=== PATIENT | male | born 1975 | race Caucasian/White ===

== ENCOUNTER 2024-02-26 08:59 | Inpatient (IN) | payer BC, SELFPAY ==
[2024-02-26] VITALS (17 sets, daily range): BP systolic 119–169; BP diastolic 94–131; PULSE 78–117; RESP 13–93; TEMP 36.4–37.1; O2SAT 95–100; BMI 30.1
--- NOTE | 2024-02-26 09:19 | XR_ITS ---
Examination: AP chest single view Technique one AP portable semiupright chest single view Exam date and time: February 26, 2024 1036 hrs. Indications: Shortness of breath coughing diaphoresis leg swelling beginning 2 weeks ago. Findings: Early CHF Mild to moderate enlargement left ventricle Prominent vascular congestion with early septal edema Impression: Early CHF
--- NOTE | 2024-02-26 09:19 | EKG_ITS ---
[facility] Test Date: 2024-02-26 Pat Name: JOSE BAIRES Department: Room: - Gender: Male Adjunct In[employer]: : 1975 Requested By: Luke Hernandez Order Number: [id number] Reading MD: Luke Hernandez Measurements Intervals [place] Rate: 106 P: 59 [place]: 163 QRS: -33 QRSD: 97 T: 60 QT: 413 QTc: 550 Interpretive Statements SINUS TACHYCARDIA WITH OCCASIONAL SUPRAVENTRICULAR PREMATURE COMPLEXES POSSIBLE LEFT ATRIAL ENLARGEMENT [-0.1mV P WAVE IN V1/V2] MARKED LEFT AXIS DEVIATION [QRS AXIS < -30] NONSPECIFIC T-WAVE ABNORMALITY No previous ECG available for comparison /store/S0/[id number].pdf
--- NOTE | 2024-02-26 09:20 | PD.EDRME ---
Rapid Medical Screening Exam RME Arrival date/time: 02/26/24 08:59 Chief Complaint: Flu Like Symptoms Time Seen by Provider: 02/26/24 09:07 Vital signs: Vital Signs Temperature 98.8 F 02/26/24 09:08 Pulse Rate 111 H 02/26/24 09:08 Respiratory Rate 18 02/26/24 09:08 Blood Pressure 156/121 H 02/26/24 09:08 Pulse Oximetry (%) 99 02/26/24 09:08 Oxygen Delivery Method Room Air 02/26/24 09:08 RME Narrative: Shortness of breath, ALCOCER, BLE swelling x 2 weeks. Denies prior cardiac hx.
--- NOTE | 2024-02-26 09:43 | XR_ITS ---
Examination: Venous duplex lower extremity sonogram, bilateral. Date and time of exam: February 26, 2024 0957 hrs. Indications: Bilateral leg edema beginning 2 weeks ago Technique: Multiple sonographic images of the deep venous system have been obtained. B-mode/2-D grayscale imaging of vascular structures and Doppler spectral analysis (waveforms) and color performed Both legs are examined. Findings: Positive for acute nonocclusive deep vein thrombus involving the bilateral posterior tibial veins Remaining deep venous system both lower extremities unremarkable Impression: Positive for acute nonocclusive deep vein thrombus involving bilateral posterior tibial veins
--- NOTE | 2024-02-26 09:43 | XR_ITS ---
Examination: CTA chest with intravenous contrast 2-D reconstructions 3-D reconstructions, vascular Date and time of exam: February 26, 2024 11:41 AM Indications: Chest pain hypertension shortness of breath beginning one week ago CTDI: vol (mGy) 37.3 DLP: (mGycm) 449 Technique: Multiple axial sections of the thorax have been obtained. 3 mm slice thickness, from below the hemidiaphragms to above the apices of the lungs. Mediastinal and lung density settings have been obtained. 2-D sagittal and coronal reconstructions. 3-D angiographic renderings, 3-D volume renderings, 3D post processing, vascular maximum intensity projections obtained. Contrast administered is 100 cc Isovue-370. Low dose protocols were performed. One or more of the following dose reduction techniques were used; automated exposure control, adjustment of the mA and/or KV according to patient size, use of iterative reconstruction technique. Findings: No thoracic aortic aneurysmal dilatation or dissection No pulmonary artery emboli No paratracheal tracheobronchial or bronchopulmonary adenopathy Mild to moderate enlargement cardiac contour with prominent vascular congestion and early septal edema in the lung coy Small to moderate right pleural effusion and small left pleural effusion No lobar pneumonia No visualized liver or splenic lesion Gallbladder is only partly visualized No pancreatic mass Kidneys partially visualized no hydronephrosis Impression: Negative for pulmonary artery emboli Mild CHF
--- NOTE | 2024-02-26 09:45 | PD.EDSOB ---
ED SOB =RME/HPI General Chief Complaint: Flu Like Symptoms Stated Complaint: DIFF BREATHING/COUGH/SWEATS/LEG SWELLING/DENTAL Time Seen by Provider: 02/26/24 09:07 Arrival date/time: 02/26/24 08:59 RME / HPI RME / HPI Narrative: Shortness of breath, ALCOCER, BLE swelling x 2 weeks. Denies prior cardiac hx. This section includes all my notes and documentations, including HPI, PE, and ED course.? Luis Barrios MD HPI: 48 year old male here with a couple week history of dyspnea. With orthopnea and leg swellings. No CP. No fever or chills. No other complaints. ROS: All negative except as documented in HPI. Physical Exam: General:? Alert and oriented.? In mild respiratory distress with hypoxia and high BP. Eyes:? Conjunctivae and lids clear.? EOMI.? PERRL. ENT:? No nasal congestion.? Neck:? Supple.? No carotid bruit.? No JVD.?? Heart:? RRR.? Lungs:? Mild respiratory distress.? Moderately decreased air movement with rales and wheezing. Legs:? Moderate pitting edema of lower legs. Skin:? Warm and dry.?? Neuro:? Alert and oriented X 3.? Solumedrol 125 mg IV and DuoNeb given before diagnostic tests, no improvement noted. I reviewed all diagnostic test results. My interpretation of the EKG is sinus rhythm with nonspecific ST-T changes. My interpretation of the chest x-ray is increased vascular congestion. My review of the chest CT report is no PE but with CHF. My review of the leg US reports is bilateral DVT. Blood tests and urine tests remarkable for normal D-Dimer, negative Troponin, and BNP 556. At this point, diagnoses include?CHF, Respiratory Failure, DVT, and Hypertensive Urgency. Treatment here included?Lasix, Morphine, NTG, Lovenox, Metoprolol, and Clonidine. No significant improvement noted subjectively and objectively. I discussed the case with our hospitalist.? About the presentation and exam and diagnostics and treatments here.? And need of further care in the hospital.? Will accept the patient. Luis Barrios MD Related Data Previous Rx's ?Medication ?Instructions ?Recorded apixaban 5 mg (74 tabs) tablets in 5 mg PO BID #74 tabs 03/01/24 a dose pack (Eliquis DVT-PE Treat 30D Start) atorvastatin 40 mg tablet 40 mg PO HS 30 days #30 tabs 03/01/24 furosemide 40 mg tablet 40 mg PO QDAY 30 days #30 tabs 03/01/24 metformin 500 mg tablet,extended 500 mg PO QDAY #30 tabs 03/01/24 release 24 hr metoprolol succinate 25 mg 25 mg PO QDAY #30 tabs 03/01/24 tablet,extended release 24 hr miscellaneous medical supply #1 ea 03/01/24 (Blood Pressure Cuff) sacubitril 24 mg-valsartan 26 mg 1 tab PO BID #30 tabs 03/01/24 tablet (Entresto) Allergies Allergy/AdvReac Type Severity Reaction Status Date / Time dapagliflozin Allergy Intermediate Flushing & Verified 02/28/24 15:11 fever & hives Course Quality Measures none Orders Category Date Time Status Bedside COVID-19 Antigen Test NOW Care 02/26/24 11:11 Active COVID-19 Screening Questionnaire NOW Care 02/26/24 12:[address] Screening NOW Care 02/26/24 09:43 Active Decision to Admit X1 Care 02/26/24 12:31 Completed EKG (ED ONLY) *Do not use* NOW Care 02/26/24 09:19 Completed Saline [Insert IV] NOW Care 02/26/24 09:[address] angio chest Stat Exams 02/26/24 09:43 Completed CXR [XR chest 1V] Stat Exams 02/26/24 09:19 Completed EKG (ED Only) Stat Exams 02/26/24 09:19 Draft US venous doppler LE BI Stat Exams 02/26/24 09:43 Completed ABG [Arterial Blood Gas] Stat Lab 02/26/24 12:50 Completed BNP [B-Type Natriuretic Peptide] Stat Lab 02/26/24 09:33 Completed CBC Stat Lab 02/26/24 09:33 Completed CMP [Comprehensive Metabolic Panel] Stat Lab 02/26/24 09:33 Completed D-Dimer Stat Lab 02/26/24 09:33 Completed Magnesium Stat Lab 02/26/24 09:33 Completed Troponin I Stat Lab 02/26/24 09:33 Completed UA, C/S IF [Urinalysis, C/S if Indicated] Stat Lab 02/26/24 11:20 Completed Albuterol/Ipratr Rt Alma [Duoneb Rt Alma] Med 02/26/24 09:42 Discontinued 3 ml INH X1 ONE Enoxaparin [Lovenox] Med 02/26/24 13:00 Discontinued 100 mg SC X1 ONE Furosemide Inj [Lasix Inj] Med 02/26/24 10:37 Discontinued 20 mg IVP X1 ONE MethylPREDNISolone.* [SoluMEDROL Inj] Med 02/26/24 09:42 Discontinued 125 mg IVP X1 ONE Metoprolol Tartrate [Lopressor] Med 02/26/24 10:36 Discontinued 50 mg PO X1 ONE Morphine Inj Med 02/26/24 10:37 Discontinued 2 mg IVP X1 ONE Nitroglycerin Oint 2% [Nitro-paste Oint 2%] Med 02/26/24 10:37 Discontinued 1 inch TOP X1 ONE cloNIDine HCL [Catapres] Med 02/26/24 10:36 Discontinued 0.2 mg PO X1 ONE Vital Signs Vital signs: Vital Signs Temperature 98.8 F 02/26/24 09:08 Pulse Rate 111 H 02/26/24 09:08 Respiratory Rate 18 02/26/24 09:08 Blood Pressure 156/121 H 02/26/24 09:08 Pulse Oximetry (%) 99 02/26/24 09:08 Oxygen Delivery Method Room Air 02/26/24 09:08 Shortness of Breath / Dyspnea Patient data External records reviewed:: [facility] previous records Clinical information provided by:: patient Social determinants that could affect healthcare access:: none Patient has the following chronic illnesses:: HTN DM COPD How is presenting disease/condition affected by chronic disease/condition?: exacerbated by Evaluation data The following diagnostics were reviewed and interpreted by me:: lab results, radiology exam(s) and EKG tracing(s) (My interpretation of the EKG is: Sinus rhythm (106 bpm) with nonspecific ST-T changes. Luis Barrios MD) Lab and/or radiology exams considered but not ordered:: none Interpretation Summary: CHF, Respiratory Failure, DVT, and Hypertensive Urgency. Medications / Prescriptions Medications or Prescriptions considered but not ordered:: none Medication administrations:: Medication Administration History Acetaminophen (Acetaminophen 325 Mg Tablet) 650 mg PO Q6H PRN PRN Reason: Fever >101.5 Stop: 03/27/24 13:30 Acetaminophen (Acetaminophen 325 Mg Tablet) 650 mg PO Q6H PRN PRN Reason: PAIN SCALE 1-3 (mild Stop: 03/27/24 13:30 Hydrocodone Bitart/Acetaminophen (Hydrocodone/Apap 5/325 Tablet) 1 tab PO Q4HR PRN PRN Reason: Pain Scale 4-10 Stop: 03/02/24 13:35 Last Admin: 02/27/24 13:16 Dose: 1 tab Documented By: Admin: 02/26/24 22:53 Dose: 1 tab Documented By: AM Apixaban (Apixaban 2.5 Mg Tablet) 10 mg PO BID REPLACED BY [facility] Stop: 03/07/24 21:01 Atorvastatin Calcium (Atorvastatin Calcium 20 Mg Tablet) 40 mg PO HS REPLACED BY [facility] Stop: 03/28/24 20:59 Last Admin: 02/29/24 21:44 Dose: 40 mg Documented By: Admin: 02/28/24 20:22 Dose: 40 mg Documented By: Admin: 02/27/24 20:56 Dose: 40 mg Documented By: AM Carvedilol (Carvedilol 3.125 Mg Tablet) 3.125 mg PO BIDWM REPLACED BY [facility] Stop: 03/28/24 17:29 Last Admin: 03/01/24 08:12 Dose: 3.125 mg Documented By: Admin: 02/29/24 17:07 Dose: 3.125 mg Documented By: Admin: 02/29/24 07:59 Dose: 3.125 mg Documented By: Admin: 02/28/24 17:26 Dose: 3.125 mg Documented By: Admin: 02/28/24 08:10 Dose: 3.125 mg Documented By: Admin: 02/27/24 16:41 Dose: 3.125 mg Documented By: NQ Dextrose (Dextrose 50%-Water Inj 50 Ml Syringe) 25 ml IV Q15MIN PRN PRN Reason: BG 50-70 responsive npo pt Stop: 03/27/24 13:35 Dextrose (Dextrose 50%-Water Inj 50 Ml Syringe) 50 ml IV Q15MIN PRN PRN Reason: BG <50 OR BG <70 & pt unresponsive Stop: 03/27/24 13:35 Diphenhydramine HCl (Diphenhydramine 25 Mg Capsule) 25 mg PO Q6HR PRN PRN Reason: Itching or hives Stop: 03/29/24 12:55 Furosemide (Furosemide 40 Mg Tablet) 40 mg PO QDAY ESTHER Stop: 03/31/24 08:59 Last Admin: 03/01/24 08:13 Dose: 40 mg Documented By: TM Glucagon (Glucagon Inj 1 Mg Vial) 1 mg IM Q15MIN PRN PRN Reason: BG <70, and no IV access Insulin Human Lispro (Insulin Lispro (Admelog) 1 Unit/0.01 Ml Unit) 0 unit SC AC REPLACED BY [facility]; Protocol Stop: 03/27/24 16:59 Last Admin: 03/01/24 11:43 Dose: 1 unit Documented By: DAVID Co-signed By: DE Admin: 03/01/24 07:38 Dose: 1 unit Documented By: DAVID Co-signed By: DARVIN Admin: 02/29/24 17:07 Dose: 1 unit Documented By: DAVID Co-signed By: GERALD Admin: 02/29/24 11:31 Dose: 1 unit Documented By: DAVID Co-signed By: DARVIN Admin: 02/29/24 08:00 Dose: 1 unit Documented By: TM Co-signed By: JEAN Admin: 02/28/24 16:46 Dose: Not Given Documented By: JED Non-Admin Reason: Per Protocol Admin: 02/28/24 12:33 Dose: Not Given Documented By: JRJesus Non-Admin Reason: Per Protocol Admin: 02/28/24 07:41 Dose: 1 unit Documented By: JED Co-signed By: DIANA Admin: 02/27/24 16:37 Dose: 1 unit Documented By: NQ Co-signed By: KEVIN Admin: 02/27/24 11:31 Dose: 2 unit Documented By: NQ Co-signed By: DANYEL Admin: 02/27/24 08:00 Dose: 1 unit Documented By: NQ Co-signed By: DANYEL Admin: 02/26/24 17:01 Dose: 2 unit Documented By: MARY(2) Co-signed By: PHILIP Losartan Potassium (Losartan Potassium 25 Mg Tablet) 25 mg PO QDAY ESTHER Stop: 03/27/24 13:44 Last Admin: 03/01/24 08:13 Dose: 25 mg Documented By: Admin: 02/29/24 07:59 Dose: 25 mg Documented By: TM Pantoprazole Sodium (Pantoprazole 40 Mg Tablet) 40 mg PO QDAY ESTHER Stop: 03/28/24 11:59 Last Admin: 03/01/24 08:13 Dose: 40 mg Documented By: Admin: 02/29/24 07:59 Dose: 40 mg Documented By: Admin: 02/28/24 08:11 Dose: 40 mg Documented By: R Admin: 02/27/24 13:14 Dose: 40 mg Documented By: NQ Sennosides (Senna Tablet) 2 tab PO BID PRN; Protocol PRN Reason: CONSTIPATION Stop: 03/27/24 13:30 Discontinued Medications Albuterol/Ipratropium (Albuterol/Ipratropium (Duoneb) Rt Alma 3 Ml Nebu) 3 ml INH X1 ONE Stop: 02/26/24 09:43 Last Admin: 02/26/24 10:23 Dose: 3 ml Documented By: CHLOE Clonidine (Clonidine Hcl 0.1 Mg Tablet) 0.2 mg PO X1 ONE Stop: 02/26/24 10:37 Last Admin: 02/26/24 10:43 Dose: 0.2 mg Documented By: AM(2) Dapagliflozin (Dapagliflozin Propanediol 5 Mg Tablet) 5 mg PO QAM REPLACED BY [facility] Stop: 03/29/24 10:59 Last Admin: 02/28/24 12:34 Dose: 5 mg Documented By: JED Diphenhydramine HCl (Diphenhydramine 25 Mg Capsule) 25 mg PO X1 ONE Stop: 02/28/24 12:57 Last Admin: 02/28/24 13:13 Dose: 25 mg Documented By: JED Enoxaparin Sodium (Enoxaparin Sod Inj 100 Mg/Ml Syringe) 100 mg SC X1 ONE Stop: 02/26/24 13:01 Last Admin: 02/26/24 13:26 Dose: 100 mg Documented By: AM(2) Folic Acid (Folic Acid 1 Mg Tablet) 1 mg PO BID ESTHER Stop: 03/02/24 20:59 Last Admin: 03/01/24 08:12 Dose: 1 mg Documented By: Admin: 02/29/24 21:44 Dose: 1 mg Documented By: Admin: 02/29/24 07:59 Dose: 1 mg Documented By: Admin: 02/28/24 20:23 Dose: 1 mg Documented By: Admin: 02/28/24 08:11 Dose: 1 mg Documented By: Admin: 02/27/24 20:56 Dose: 1 mg Documented By: Admin: 02/27/24 08:07 Dose: 1 mg Documented By: Admin: 02/26/24 21:34 Dose: 1 mg Documented By: AM Furosemide (Furosemide Inj 10 Mg/Ml 4ml Vial) 20 mg IVP X1 ONE Stop: 02/26/24 10:38 Last Admin: 02/26/24 10:54 Dose: 20 mg Documented By: MARY(2) Furosemide (Furosemide Inj 10 Mg/Ml 4ml Vial) 40 mg IVP BIDD REPLACED BY [facility] Stop: 03/28/24 08:59 Last Admin: 02/27/24 08:06 Dose: 40 mg Documented By: NQ Furosemide (Furosemide Inj 10 Mg/Ml 4ml Vial) 20 mg IVP X1 ONE Stop: 02/26/24 14:03 Last Admin: 02/26/24 15:33 Dose: 20 mg Documented By: TC Furosemide (Furosemide Inj 10 Mg/Ml 4ml Vial) 40 mg IVP X1 ONE Stop: 02/26/24 21:01 Last Admin: 02/26/24 21:33 Dose: 40 mg Documented By: MARY Furosemide (Furosemide Inj 10 Mg/Ml Vial 2 Ml) 20 mg IVP X1 ONE Stop: 02/27/24 17:24 Last Admin: 02/27/24 17:29 Dose: 20 mg Documented By: MUNA Furosemide (Furosemide Inj 10 Mg/Ml 4ml Vial) 40 mg IVP QDAY REPLACED BY [facility] Stop: 03/29/24 08:59 Last Admin: 02/29/24 08:00 Dose: 40 mg Documented By: Admin: 02/28/24 08:11 Dose: 40 mg Documented By: JED Heparin Sodium (Porcine) (Heparin Sod Inj 5000 Unit/Ml Vial) 5,900 unit 60 unit/kg (5900 unit) IV X1 ONE; Protocol Stop: 02/26/24 13:37 Last Admin: 02/26/24 15:38 Dose: 5,900 unit Documented By: JAZIEL Co-signed By: MARY(2) Heparin Sodium (Porcine) (Heparin Sod Inj 5000 Unit/Ml Vial) 2,000 unit IV PRN ONE Stop: 02/26/24 22:58 Last Admin: 02/26/24 23:10 Dose: 2,000 unit Documented By: MARY Co-signed By: Heparin Sodium (Porcine) (Heparin Sod Inj 5000 Unit/Ml Vial) 2,000 unit IVP X1 ONE; Protocol Stop: 02/27/24 12:49 Last Admin: 02/27/24 13:02 Dose: 2,000 unit Documented By: NQ Co-signed By: KEVIN Heparin Sodium (Porcine) (Heparin Sod Inj 5000 Unit/Ml Vial) 1,750 unit IVP X1 ONE Stop: 02/27/24 15:18 Last Admin: 02/27/24 15:27 Dose: 1,750 unit Documented By: NQ Co-signed By: KEVIN Heparin Sodium/Dextrose (Heparin In D5w Ivpb) 25,000 unit in 250 mls @ 10 mls/hr IV .Q24H ESTHER; Protocol Stop: 03/11/24 15:29 Last Titration: 02/27/24 13:12 Dose: 14.2 units/kg/hr, 13.929 mls/hr Documented By: NQ Co-signed By: DANYEL Admin: 02/27/24 13:10 Dose: 12.2 units/kg/hr, 11.967 mls/hr Documented By: NQ Co-signed By: DANYEL Titration: 02/27/24 13:09 Dose: Infused Documented By: NQ Co-signed By: DANYEL Titration: 02/26/24 23:11 Dose: 12.2 units/kg/hr, 11.967 mls/hr Documented By: MARY Co-signed By: Titration: 02/26/24 19:49 Dose: 10.19 units/kg/hr, 10 mls/hr Documented By: CB Co-signed By: AM(2) Admin: 02/26/24 15:38 Dose: 12 units/kg/hr, 11.771 mls/hr Documented By: TC Co-signed By: AM(2) Heparin Sodium/Dextrose (Heparin In D5w Ivpb) 25,000 unit in 250 mls @ 16.835 mls/hr IV .[id number] REPLACED BY [facility]; Protocol Stop: 03/12/24 14:44 Last Admin: 03/01/24 04:54 Dose: 18 units/kg/hr, 16.835 mls/hr Documented By: JOSH Co-signed By: VONDA Titration: 03/01/24 02:22 Dose: Infused Documented By: JOSH Co-signed By: DA Admin: 02/29/24 11:30 Dose: 18 units/kg/hr, 16.835 mls/hr Documented By: TM Co-signed By: DARVIN Titration: 02/29/24 11:30 Dose: Infused Documented By: TM Co-signed By: DARVIN Admin: 02/28/24 21:00 Dose: 18 units/kg/hr, 16.835 mls/hr Documented By: AM Co-signed By: AM(3) Titration: 02/28/24 20:00 Dose: Infused Documented By: AM Co-signed By: AM(3) Titration: 02/28/24 07:03 Dose: 18 units/kg/hr, 16.835 mls/hr Documented By: R Co-signed By: DIANA Admin: 02/28/24 05:09 Dose: 18 units/kg/hr, 16.835 mls/hr Documented By: MARY Co-signed By: VONDA Titration: 02/28/24 05:09 Dose: Infused Documented By: AM Co-signed By: DA Titration: 02/27/24 22:11 Dose: 18 units/kg/hr, 16.835 mls/hr Documented By: AM Co-signed By: AD Titration: 02/27/24 19:00 Dose: 18 units/kg/hr, 16.835 mls/hr Documented By: AM Co-signed By: AD Admin: 02/27/24 15:31 Dose: 18 units/kg/hr, 16.835 mls/hr Documented By: NQ Co-signed By: KEVIN Lorazepam (Lorazepam 0.5 Mg Tablet) 0.5 mg PO Q4HR PRN PRN Reason: CIWA Score 2-6 Stop: 03/02/24 15:58 Lorazepam (Lorazepam 0.5 Mg Tablet) 1 mg PO Q4HR PRN PRN Reason: CIWA SCORE 7-11 Stop: 03/02/24 15:58 Lorazepam (Lorazepam 0.5 Mg Tablet) 2 mg PO Q4HR PRN PRN Reason: CIWA SCORE 12-15 Stop: 03/02/24 15:58 Losartan Potassium (Losartan Potassium 25 Mg Tablet) 25 mg PO QDAY ESTHER Stop: 03/27/24 13:44 Last Admin: 02/28/24 08:11 Dose: 25 mg Documented By: Admin: 02/27/24 08:07 Dose: 25 mg Documented By: Admin: 02/26/24 15:33 Dose: 25 mg Documented By: TC Methylprednisolone Sodium Succinate (Methylprednisolone Sod Succ 62.5 Mg/Ml 2ml Vial) 125 mg IVP X1 ONE Stop: 02/26/24 09:43 Last Admin: 02/26/24 10:44 Dose: 125 mg Documented By: AM(2) Metoprolol Tartrate (Metoprolol Tartrate 25 Mg Tablet) 50 mg PO X1 ONE Stop: 02/26/24 10:37 Last Admin: 02/26/24 10:44 Dose: 50 mg Documented By: AM(2) Morphine Sulfate (Morphine Sulf Inj 10 Mg/Ml Vial) 2 mg IVP X1 ONE Stop: 02/26/24 10:38 Last Admin: 02/26/24 10:55 Dose: 2 mg Documented By: AM(2) Nicotine (Nicotine Patch 7 Mg/24 Hr Patch.Td24) 7 mg TOP QDAY ESTHER Stop: 03/27/24 15:59 Last Admin: 03/01/24 08:13 Dose: Not Given Documented By: TM Non-Admin Reason: Patient Refused Admin: 02/29/24 08:01 Dose: Not Given Documented By: TM Non-Admin Reason: Patient Refused Admin: 02/28/24 08:12 Dose: Not Given Documented By: JRJesus Non-Admin Reason: Patient Refused Admin: 02/27/24 08:15 Dose: Not Given Documented By: NQ Non-Admin Reason: Patient Refused Admin: 02/26/24 16:35 Dose: Not Given Documented By: AM(2) Non-Admin Reason: Patient Refused Nitroglycerin (Nitroglycerin Oint 2% 1 Inch Packet) 1 inch TOP X1 ONE Stop: 02/26/24 10:38 Last Admin: 02/26/24 10:55 Dose: 1 inch Documented By: AM(2) Potassium Chloride (Potassium Chloride 20 Meq Tabcr) 20 meq PO X1 ONE Stop: 02/27/24 07:51 Last Admin: 02/27/24 08:06 Dose: 20 meq Documented By: NQ Potassium Chloride (Potassium Chloride 20 Meq Tabcr) 40 meq PO X1 ONE Stop: 02/27/24 07:51 Last Admin: 02/27/24 08:07 Dose: 40 meq Documented By: NQ Potassium Chloride (Potassium Chloride 20 Meq Tabcr) 40 meq PO X1 ONE Stop: 02/28/24 08:00 Last Admin: 02/28/24 08:29 Dose: 40 meq Documented By: JED Potassium Chloride (Potassium Chloride 20 Meq Tabcr) 40 meq PO X1 ONE Stop: 03/01/24 08:34 Last Admin: 03/01/24 09:37 Dose: 40 meq Documented By: TM Thiamine HCl (Thiamine 100 Mg Tablet) 100 mg PO BID ESTHER Stop: 03/02/24 20:59 Last Admin: 03/01/24 08:12 Dose: 100 mg Documented By: Admin: 02/29/24 21:44 Dose: 100 mg Documented By: Admin: 02/29/24 07:59 Dose: 100 mg Documented By: Admin: 02/28/24 20:23 Dose: 100 mg Documented By: Admin: 02/28/24 08:11 Dose: 100 mg Documented By: Admin: 02/27/24 20:56 Dose: 100 mg Documented By: Admin: 02/27/24 08:07 Dose: 100 mg Documented By: Admin: 02/26/24 21:34 Dose: 100 mg Documented By: AM Treatment here included?Lasix, Morphine, NTG, Lovenox, Metoprolol, and Clonidine from [place]. Consultations Consultation(s) initiated? (list below): No Diagnosis Shortness of Breath Differential Diagnosis: acute exacerbation of chronic obstructive airways disease, congestive heart failure, community acquired pneumonia, asthma with exacerbation, pulmonary embolism and other (UT and DVT) Most likely diagnosis given after review of the tests above:: CHF, Respiratory Failure, DVT, and Hypertensive Urgency. Admission Indicated Admission indicated?: indicated Explain why admission is indicated or not indicated:: No significant improvement with?Lasix, Morphine, NTG, Lovenox, Metoprolol, and Clonidine. Admission Request Was there a request for admission?: Yes Admission Attestation Admission request attestation: Discussed case with Hospitalist service regarding admission. Discussed patients ED course, exam findings, labs, and radiology results. The Hospitalist [agrees,declines] to accept the patient for admission. Disposition Plan Disposition Plan: Admit Discharge Plan Plan Patient Disposition: Admit Acute Care w/in Hospital Patient condition on transfer: Stable Problem List Clinical Impression: Acute respiratory failure with hypoxia, New onset of congestive heart failure, DVT of lower extremity, bilateral, Hypertensive urgency
[2024-02-26 09:59] LABS: Basophils # (Auto) 0.1 Thou/mm3 (0.0-0.2); Basophils % (Auto) 0 % (0-2.5); Eosinophils # (Auto) 0.1 Thou/mm3 (0.0-0.5); Eosinophils % (Auto) 1 % (0-10); Hematocrit 47.4 % (41.0-53.0); Immature Granulocytes % (Auto) 1 % (0-0); Immature Granulocytes Auto 0.06 Thou/mm3 (0.00-0.00); Lymphocytes # (Auto) 1.5 Thou/mm3 (1.0-4.8); Lymphocytes % (Auto) 13 % (10-50); Mean Corpuscular HGB Conc 33.8 g/dl (31.0-37.0); Mean Corpuscular Hemoglobin 30.5 pg (25.0-35.0); Mean Corpuscular Volume 90 fL (80-100); Monocytes % (Auto) 8 % (0-12); Neutrophils # (Auto) 9.6 Thou/mm3 (1.8-7.7); Neutrophils % (Auto) 78 % (37-80); Nucleated Red Blood Cell % 0 /100 WBC (0); Platelet Count 236 Thou/mm3 (140-440); RDW Standard Deviation 42.2 fL (35.1-43.9); Red Blood Count 5.25 Miln/mm3 (4.50-5.90); White Blood Count 12.2 Thou/mm3 (3.8-10.6)
[2024-02-26 10:19] LABS: B-Type Natriuretic Peptide 556 pg/mL (0-100)
[2024-02-26 10:23] LABS: Alanine Aminotransferase 120 U/L (10-49); Albumin, Serum 4.2 gm/dL (3.5-5.0); Albumin/Globulin Ratio 1.6 (1.2-2.2); Alkaline Phosphatase 114 U/L (46-116); Anion Gap 6 (7-16); Aspartate Amino Transferase 55 U/L (0-34); BUN/Creatinine Ratio 22 Ratio (12-20); Bilirubin,Total 0.8 mg/dL (0.3-1.2); Blood Urea Nitrogen 24 mg/dL (9-23); Calcium 9.1 mg/dL (8.3-10.6); Calcium (Corrected) 9.1 mg/dL (8.5-10.1); Carbon Dioxide 27.3 mMol/L (20.0-31.0); Chloride 104 mMol/L (98-107); Creatinine (Component) 1.1 mg/dL (0.6-1.3); D-Dimer < 250 ng/mL (<600); Estimated Creatinine Clearance 100.2 mL/min (>60); Globulin 2.6 gm/dL (2.3-3.5); Glucose 216 mg/dL (74-106); Magnesium 2.2 mg/dL (1.6-2.6); Osmolality,Calculated 284 (275-295); Potassium 4.8 mMol/L (3.4-5.1); Sodium 137 mMol/L (136-145); Total Protein 6.8 gm/dL (5.7-8.2); Troponin I 0.026 ng/mL (0.0-0.045); eGFR > 60 See Note
[2024-02-26] MEDS: ALBUTEROL/IPRATROPIUM (Duoneb) RT SOL 3 ML NEBU INH (10:23)
[2024-02-26] MEDS: cloNIDine HCL 0.1 MG TABLET 0.2 MG PO (10:43)
[2024-02-26] MEDS: MethylPREDNISolone SOD SUCC 62.5 MG/ML 2ML VIAL 125 MG IVP (10:44)
[2024-02-26] MEDS: METOPROLOL TARTRATE 25 MG TABLET 50 MG PO (10:44)
[2024-02-26] MEDS: FUROSEMIDE INJ 10 MG/ML 4ML VIAL 20 MG IVP ×2 (10:54→15:33)
[2024-02-26] MEDS: MORPHINE SULF INJ 10 MG/ML VIAL 2 MG IVP (10:55)
[2024-02-26] MEDS: NITROGLYCERIN OINT 2% 1 INCH PACKET TOP (10:55)
[2024-02-26 12:06] LABS: Collection Type, Urine Clean Catch; Squamous Epithelial Cell,Urine 0 /hpf (0-5)
[2024-02-26 12:23] LABS: Bilirubin,Urine Negative (Negative); Blood,Urine Negative (Negative); Clarity,Urine Clear (Clear/Hazy); Color,Urine Lt-Yellow (Lt Yel-Yel); Culture Indicated,Urine Not Indicated; Glucose, Urine Negative (Negative); Hyaline Casts,Urine < 1 /hpf (0-1); Ketones,Urine Negative (Negative); Leukocyte Esterase,Urine Negative (Negative); Nitrite,Urine Negative (Negative); PH,Urine 5.5 (5.0-7.0); Protein,Urine Trace (Neg - Trace); RBC,Urine 2 /hpf (0-3); Specific Gravity,Urine 1.019 (1.001-1.035); Urobilinogen,Urine Negative mg/dL (0.0-1.0); WBC,Urine < 1 /hpf (0-5)
[2024-02-26 12:30] LABS: Sperm,Urine Present
[2024-02-26 12:55] LABS: Base Excess 0 (-3-3); HCO3 25 mEq/L (20-26); Inspired O2, VO2 Liters 3 L/min; Inspired Oxygen, FIO2 21 %; O2 Saturation 99 % (91-98); PCO2 42 mmHg (32.0-48.0); PO2 124 mmHg (83-108); pH, Arterial 7.39 (7.35-7.45)
[2024-02-26 12:56] LABS: Allen Test Not Performed; Puncture Site Right Radial
[2024-02-26] MEDS: ENOXAPARIN SOD INJ 100 MG/ML SYRINGE SC (13:26)
--- NOTE | 2024-02-26 13:29 | ESHP_ITS ---
Addendum History & Physical Addendum Date of report being addended: 02/26/24 Narrative: Attending's attestation: I reviewed labs, imaging, EKG, home medications and prior available records. Face to face evaluation was performed by me. I have personally examined the patient and discussed assessment and plan with the IM team. I reviewed the resident note and agree with the plan with exceptions as below. 48-year-old male with history of COPD in the setting of tobacco use, hypertensio n, no prior documented history of CHF, who presented with a chief complaint of dyspnea on exertion, orthopnea, PND, and cough. He was found to have new onset CHF. New onset CHF: Started the patient on IV Lasix. Cardiac diet. Fluid restriction of 1500 cc/day. Ordered echocardiogram. Consult cardiology. Transaminitis: Likely in the setting of liver congestion from volume overload. Management as above. Trend LFTs. COPD without exacerbation: Start DuoNebs. Oxygen as needed. Acute DVT of bilateral lower extremities: Started the patient on heparin drip. Monitor for bleeding.
--- NOTE | 2024-02-26 13:38 | ECHO_ITS ---
Transthoracic Echo Report Ht (in): 71 Wt (lb): 216 Exam Location: Echo Lab Status: Emergency Guidance Director: Pema Horton Indications: Procedure Performed: BP: / HR: Technical Quality: Technically difficult study MEASUREMENTS (Male / Female) Normal Values 2D ECHO LV Diastolic Diameter PLAX 5.9 cm 4.2 - 5.9 / 3.9 - 5.3 cm LV Systolic Diameter PLAX 4.9 cm IVS Diastolic Thickness 0.8 cm 0.6 - 1.0 / 0.6 - 0.9 cm LVPW Diastolic Thickness 1.1 cm 0.6 - 1.0 / 0.6 - 0.9 cm LV Relative Wall Thickness 0.3 LVOT Diameter 1.9 cm LA Volume Index 23.2 cm?/m? 16 - 28 cm?/m? M-MODE Aortic Root Diameter MM 2.3 cm LA Systolic Diameter MM 4.2 cm LA Ao Ratio MM 1.8 AV Cusp Separation MM 1.9 cm DOPPLER AV Peak Velocity 94.7 cm/s AV Peak Gradient 3.6 mmHg AV Mean Gradient 2.0 mmHg AV Velocity Time Integral 16.4 cm LVOT Peak Velocity 69.5 cm/s LVOT Peak Gradient 1.9 mmHg LVOT Velocity Time Integral 11.5 cm AV Area Cont Eq vti 2.0 cm? AV Area Cont Eq pk 2.1 cm? MV Area PHT 3.7 cm? MR Peak Velocity 174.0 cm/s MR Peak Gradient 12.1 mmHg Mitral E Point Velocity 65.5 cm/s Mitral A Point Velocity 49.0 cm/s Mitral E to A Ratio 1.3 LV E' Lateral Velocity 8.7 cm/s Mitral E to LV E' Lateral Ratio 7.5 LV E' Septal Velocity 4.6 cm/s Mitral E to LV E' Septal Ratio 14.3 PV Peak Velocity 102.0 cm/s PV Peak Gradient 4.2 mmHg FINDINGS Left Ventricle Normal left ventricular size, wall thickness.global left ventricular systolic function is moderately decreased. The ejection fraction is visually estimated at 35-40%. Right Ventricle The right ventricle is normal in size. The right ventricular systolic function is mildly decreased. Left Atrium The left atrium is normal by two-dimensional, color flow and Doppler imaging with no structural abnormalities, no thrombus formation present. Right Atrium The right atrium is normal by two-dimensional imaging, color flow and Doppler imaging with no struct ural abnormalities, no thrombus formation present. Atrial Septum The interatrial septum appears normal with no evidence of a shunt. Aorta The aorta is normal by two-dimensional, color flow and Doppler interrogation. Mitral Valve The mitral valve is normal by two-dimensional, color flow and Doppler interrogation. There is trace mitral valve regurgitation, stenosis or prolapse. Aortic Valve The aortic valve is trileaflet and normal by two-dimensional, color flow and Doppler interrogation. There is no significant aortic valve regurgitation. Tricuspid Valve The tricuspid valve is normal by two-dimensional, color flow and Doppler interrogation. There is tra ce tricuspid valve regurgitation. Pulmonic Valve The pulmonic valve is not well visualized. There is no significant pulmonic valve regurgitation. Vessels Inferior vena cava not well visualized. Pericardium The pericardium is normal by two-dimensional imaging. There is no significant pericardial effusion. CONCLUSIONS Indication: New onset heart failure Severely reduced left ventricular function with an ejection fraction of 30 to 35% with global hypoki nesis. Diastolic dysfunction present but cannot be graded accurately because of PACs. Normal RV size and function. Trace TR and could not measure RVSP appropriately. Trace MR and IVC not well-visualized. Overall suboptimal images. Miguel Jordan (Electronically Signed) Final Date: 29 February 2024 21:30
--- NOTE | 2024-02-26 14:02 | ESHP_ITS ---
Documentation for date of: 02/26/24 [facility] History of Present Illness Chief complaint: Worsening shortness of breath, lower extremity swelling and orthopnea History of present illness: This patient 48-year-old male with past medical history of hypertension not on any antihypertensive, diabetes diagnosed in 2019 managed with diet and was on metformin before presented with worsening shortness of breath orthopnea PND cough and bilateral lower extremity swelling. He was complaining of mild epigastric discomfort. 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 He denied any chest pain, fever chills, burning sensation or discomfort in urination. He does notice generalized weakness. No other significant complaints. Patient has not follow-up with PCP as outpatient. In the ED, patient was mildly hypertensive blood pressure 156/121, tachycardic heart rate 111, respiratory rate 18, afebrile and saturating well on room air. Labs were significant for leukocytosis, platelets were stable. ABGs were unremarkable. Chemistry panel was showing BUN 24 and creatinine 1.1 baseline 0.9. Blood glucose 216. AST 55 and ALT 120. Elevated BNP 556. UA was unremarkable. Imaging: Venous Doppler showed nonocclusive DVT involving bilateral posterior tibial veins. Chest x-ray showed mild vascular congestion. Chest CT was negative for PE. EKG showed sinus tachycardia with prolonged QTc 550. Patient received metoprolol tartrate 50 mg x 1, Lasix 20 mg x 1, nitroglycerin x 1, clonidine 0.2 mg x 1 and breathing treatment with Solu-Medrol 125 mg x 1. PMH: As above PSH: Nonsignificant SH: Drinks alcohol 1-3 beers every day Smokes cigarettes socially No history of illicit drug use Allergies: NKDA Home medications: None He is admitted for new onset CHF and DVT lower extremities. Review of Systems Review of Systems Systems Reviewed: All systems reviewed, normal except as documented Past Medical History Past Medical History NEUROLOGIC: Positive Peripheral Neuropathy CARDIAC: Positive Cardiac Disorders and Hypertension Family History OTHER FAMILY HX: Family history significant for hypertension Surgical History OTHER SURGICAL HX: Denied Social History SMOKING STATUS: Never smoker SUBSTANCE USE: does not use ALCOHOL: Never Travel History EBOLA RISK: No Past Medical History Comments PMH COMMENT: Past medical history: Hypertension Past surgical history: None Allergies: None Family history: Reviewed and noncontributory Social history: He is . He denies any alcohol, tobacco or drug abuse. Exam Vital Signs Temp Pulse Resp BP Pulse Ox O2 Del Method O2 Flow Rate 98.2 F 83 20 136/104 H 96 Nasal Cannula 3 02/26/24 11:20 02/26/24 13:27 02/26/24 13:27 02/26/24 13:27 02/26/24 13:27 02/26/24 13:27 02/26/24 13:27 Narrative Exam GENERAL APPEARANCE: AxOx4, generally well-appearing male in no acute distress. HEENT: NC, AT. MMM. EOMI, clear conjunctiva, oropharynx clear. NECK: Supple without lymphadenopathy. No stiffness or restricted ROM. JVD HEART: Sinus tachycardia with regular rhythm, normal S1/S2, no m/r/g LUNGS: Bilateral inspiratory crackles heard on auscultation ABDOMEN: Soft, nontender, nondistended with good bowel sounds heard. BACK: No CVAT, no obvious deformity. EXTREMITIES: Bilateral lower extremity edema 3+ up to knees NEUROLOGICAL: Grossly nonfocal. Alert and oriented, moving all 4 extremities. CN not formally tested but appear grossly intact. Observed to ambulate with normal gait. Skin: Warm and dry without any rash. Psych: Appropriate mood and affect Results: Labs 02/28/24 04:42 02/28/24 04:42 Labs: Short CBC 02/26/24 Range/Units 09:33 WBC 12.2 H (3.8-10.6) Thou/mm3 Hgb 16.0 (13.5-16.0) g/dL Hct 47.4 (41.0-53.0) % Plt Count 236 (140-440) Thou/mm3 [facility] 02/26/24 09:33 Sodium 137 Potassium 4.8 Chloride 104 Carbon Dioxide 27.3 BUN 24 H Creatinine 1.1 Glucose 216 H Calcium 9.1 Cardiac Enzymes 02/26/24 Range/Units 09:33 Troponin I 0.026 (0.0-0.045) ng/mL Liver Function 02/26/24 Range/Units 09:33 Total Bilirubin 0.8 (0.3-1.2) mg/dL AST 55 H (0-34) U/L ALT 120 H (10-49) U/L Alkaline Phosphatase 114 (46-116) U/L Albumin 4.2 (3.5-5.0) gm/dL Urine 02/26/24 Range/Units 11:20 Urine Color Lt-Yellow (Lt Yel-Yel) Urine Clarity Clear (Clear/Hazy) Urine pH 5.5 (5.0-7.0) Ur Specific [place] 1.019 (1.001-1.035) Urine Protein Trace (Neg - Trace) Urine Glucose (UA) Negative (Negative) ABG Interpretation ABG results: 02/26/24 12:50 ABG pH 7.39 ABG pCO2 42 ABG pO2 124 H ABG HCO3 25 ABG O2 Saturation 99 H ABG Base Excess 0 Quality Measures Quality Measures VTE therapy (Heparin drip) Medications Home Medications and Allergies Home Medications ?Medication ?Instructions ?Recorded ?Confirmed ?Type No Known Home Medications 02/26/24 02/26/24 History Allergies Allergy/AdvReac Type Severity Reaction Status Date / Time No Known Allergies Allergy Verified 02/26/24 09:02 Visit Medications Acetaminophen (Acetaminophen 325 Mg Tablet) 650 mg PO Q6H PRN PRN Reason: Fever >101.5 Stop: 03/27/24 13:30 Acetaminophen (Acetaminophen 325 Mg Tablet) 650 mg PO Q6H PRN PRN Reason: PAIN SCALE 1-3 (mild Stop: 03/27/24 13:30 Hydrocodone Bitart/Acetaminophen (Hydrocodone/Apap 5/325 Tablet) 1 tab PO Q4HR PRN PRN Reason: Pain Scale 4-10 Stop: 03/02/24 13:35 Dextrose (Dextrose 50%-Water Inj 50 Ml Syringe) 25 ml IV Q15MIN PRN PRN Reason: BG 50-70 responsive npo pt Stop: 03/27/24 13:35 Dextrose (Dextrose 50%-Water Inj 50 Ml Syringe) 50 ml IV Q15MIN PRN PRN Reason: BG <50 OR BG <70 & pt unresponsive Stop: 03/27/24 13:35 Glucagon (Glucagon Inj 1 Mg Vial) 1 mg IM Q15MIN PRN PRN Reason: BG <70, and no IV access Heparin Sodium/Dextrose (Heparin In D5w Ivpb) 25,000 unit in 250 mls @ 10 mls/hr IV .Q24H ESTHER; Protocol Stop: 03/11/24 13:44 Insulin Human Lispro (Insulin Lispro (Admelog) 1 Unit/0.01 Ml Unit) 0 unit SC AC ESTHER; Protocol Stop: 03/27/24 16:59 Losartan Potassium (Losartan Potassium 25 Mg Tablet) 25 mg PO QDAY ESTHER Stop: 03/27/24 13:44 Sennosides (Senna Tablet) 2 tab PO BID PRN; Protocol PRN Reason: CONSTIPATION Stop: 03/27/24 13:30 Discontinued Medications Albuterol/Ipratropium (Albuterol/Ipratropium (Duoneb) Rt [place]ma 3 Ml Nebu) 3 ml INH X1 ONE Stop: 02/26/24 09:43 Last Admin: 02/26/24 10:23 Dose: 3 ml Clonidine (Clonidine Hcl 0.1 Mg Tablet) 0.2 mg PO X1 ONE Stop: 02/26/24 10:37 Last Admin: 02/26/24 10:43 Dose: 0.2 mg Enoxaparin Sodium (Enoxaparin Sod Inj 100 Mg/Ml Syringe) 100 mg SC X1 ONE Stop: 02/26/24 13:01 Last Admin: 02/26/24 13:26 Dose: 100 mg Furosemide (Furosemide Inj 10 Mg/Ml 4ml Vial) 20 mg IVP X1 ONE Stop: 02/26/24 10:38 Last Admin: 02/26/24 10:54 Dose: 20 mg Heparin Sodium (Porcine) (Heparin Sod Inj 5000 Unit/Ml Vial) 5,900 unit 60 unit/kg (5900 unit) IV X1 ONE; Protocol Stop: 02/26/24 13:37 Methylprednisolone Sodium Succinate (Methylprednisolone Sod Succ 62.5 Mg/Ml 2ml Vial) 125 mg IVP X1 ONE Stop: 02/26/24 09:43 Last Admin: 02/26/24 10:44 Dose: 125 mg Metoprolol Tartrate (Metoprolol Tartrate 25 Mg Tablet) 50 mg PO X1 ONE Stop: 02/26/24 10:37 Last Admin: 02/26/24 10:44 Dose: 50 mg Morphine Sulfate (Morphine Sulf Inj 10 Mg/Ml Vial) 2 mg IVP X1 ONE Stop: 02/26/24 10:38 Last Admin: 02/26/24 10:55 Dose: 2 mg Nitroglycerin (Nitroglycerin Oint 2% 1 Inch Packet) 1 inch TOP X1 ONE Stop: 02/26/24 10:38 Last Admin: 02/26/24 10:55 Dose: 1 inch Assessment & Plan Plan Summary: This patient 48-year-old male with past medical history of hypertension, DM type II presented with worsening shortness of breath orthopnea PND cough and bilateral lower extremity swelling x 2 weeks ago. He was complaining of mild epigastric discomfort. He was found to have mild leukocytosis. ABGs were unremarkable. Mildly elevated transaminases and BNP. Doppler ultrasound lower extremities was significant for acute nonocclusive deep vein thrombus involving bilateral posterior tibial veins and chest x-ray showed vascular congestion. He is admitted for new onset heart failure and DVT lower extremities. # New onset heart failure -Patient presented with worsening shortness of breath, cough, orthopnea, PND x 2 weeks ago. 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 He reported that he has to walk a lot as well and that causes exertional shortness of breath. Bilateral lower extremity was noticed. 3+ pitting edema up to knees and JVD seen. -Patient was not taking any heart failure medications or medications for high blood pressure. He does not follow-up with any PCP. -Chest x-ray showed moderate vascular congestion and heart failure pattern -In the ED, patient received Lasix 20 mg IV x 1, nitroglycerin x 1, metoprolol tartrate 50 mg x 1 and Solu-Medrol 125 mg x 1 Plan: -Started diuresis with IV Lasix 40 mg IV twice daily -Strict ROBINSON's -Fluid restriction -Ordered echocardiogram to evaluate cardiac functions -Low-salt diet -Started on losartan 25 mg once a day -Follow-up on morning labs -Low-salt diet # DVT bilateral lower extremity nonocclusive posterior tibial veins -Likely provoked with smoking, prolonged standing and sedentary lifestyle -Doppler lower extremity showed nonocclusive posterior tibial vein deep vein thrombosis. Chest CTA was negative for PE. Plan: -Started heparin drip per protocol -Follow-up on coagulation panel -Will likely discharge on Eliquis starter pack # Hypertensive urgency # History of hypertension -Patient presented with elevated blood pressure 156/121 with tachycardia heart rate 111 bpm. EKG showed sinus tachycardia with prolonged QTc 550 -Patient received metoprolol tartrate 50 mg x 1 and clonidine 0.2 mg x 1 -Initial troponin I was negative -Improved blood pressure Plan: -Started losartan 25 mg once a day -Monitor vitals closely -Follow-up on troponin I # History of diabetes type 2 -Patient was diagnosed with type 2 diabetes in 2019 and was managing his blood sugars with diet and metformin. He was taken off from metformin and did not follow with any PCP. Plan: -Ordered A1c -Insulin sliding scale AC -Accu-Cheks with hypoglycemia protocol #Congestive hepatopathy -Likely related to heart failure versus alcohol use -Patient has mildly elevated transaminases Plan: -Continuing IV diuresis -Added CIWA protocol as needed with thiamine and folate -Advised to stop drinking alcohol -Follow-up on lipid panel # Leukocytosis -Likely reactive Plan: -Patient does not have signs and symptoms of pneumonia or infection -Follow-up on CBC # Alcohol use disorder # Active smoker -Patient stated that he drinks 1-2 beers every day. Last drink was yesterday. He actively smokes socially. Plan: -CIWA protocol with thiamine and folic acid -Nicotine patch # Obesity -BMI 30.2 Plan: -Patient will benefit from diet and exercise therapy -Outpatient follow-up Health maintenance Diet: Cardiac with fluid restriction up to 1500 cc DVT prophylaxis: Heparin drip GI prophylaxis: Not indicated CODE STATUS: Full code Disposition: Patient is admitted for further workup and management of new onset heart failure and DVT lower extremities. Patient was seen and discussed with attending physician, Dr. Arnaldo Alberto MD, PGY 2 Attending Provider Attestation/Addendum I reviewed labs, imaging, EKG, home medications and prior available records. Face to face evaluation was performed by me. I have personally examined the patient and discussed assessment and plan with the IM team. I reviewed the resident note and agree with the plan with exceptions as below. See my addendum in a separate note for the same date.
[2024-02-26 15:15] LABS: Partial Thromboplastin Time 25.9 Seconds (22.0-36.0)
[2024-02-26 15:20] LABS: Troponin I 0.024 ng/mL (0.0-0.045)
[2024-02-26] MEDS: LOSARTAN POTASSIUM 25 MG TABLET PO (15:33)
[2024-02-26] MEDS: HEPARIN SOD INJ 5000 UNIT/ML VIAL 5900 UNIT IV (15:38)
[2024-02-26] MEDS: Heparin/D5w 25K 250 ML Ivpb 25,000 UNIT/250 ML BAG 11.771 UNIT IV (15:38)
[2024-02-26] MEDS: INSULIN LISPRO (AdmeLOG) 1 UNIT/0.01 ML UNIT SC (17:01)
[2024-02-26 19:52] LABS: Troponin I < 0.020 ng/mL (0.0-0.045)
--- NOTE | 2024-02-26 19:55 | PC.NURSE ---
Patient heparin drip dose was started at 12units/kg/hr instead of the order dose of 10 units/kg/hr. Dr Barba was notified that rate was changed to correct dose. Per Dr. Barba 6hour blood draw can still be done at the 6 hour justin.
[2024-02-26] MEDS: FUROSEMIDE INJ 10 MG/ML 4ML VIAL 40 MG IVP (21:33)
[2024-02-26] MEDS: THIAMINE 100 MG TABLET PO (21:34)
[2024-02-26] MEDS: FOLIC ACID 1 MG TABLET PO (21:34)
[2024-02-26 22:22] LABS: Partial Thromboplastin Time 46.1 Seconds (22.0-36.0)
[2024-02-26] MEDS: HYDROcodone/APAP 5/325 TABLET 1 TAB PO (22:53)
[2024-02-26] MEDS: HEPARIN SOD INJ 5000 UNIT/ML VIAL 2000 UNIT IV (23:10)
[2024-02-27] VITALS (12 sets, daily range): BP systolic 110–122; BP diastolic 50–87; PULSE 19–103; RESP 16–93; TEMP 35.9–36.6; O2SAT 94–99
[2024-02-27 06:17] LABS: Basophils % (Auto) 0 % (0-2.5); Eosinophils % (Auto) 0 % (0-10); Hematocrit 47.4 % (41.0-53.0); Hemoglobin 16.6 g/dL (13.5-16.0); Immature Granulocytes % (Auto) 1 % (0-0); Immature Granulocytes Auto 0.12 Thou/mm3 (0.00-0.00); Lymphocytes # (Auto) 1.2 Thou/mm3 (1.0-4.8); Lymphocytes % (Auto) 7 % (10-50); Mean Corpuscular Hemoglobin 30.7 pg (25.0-35.0); Mean Corpuscular Volume 88 fL (80-100); Monocytes # (Auto) 1.1 Thou/mm3 (0.0-0.8); Monocytes % (Auto) 6 % (0-12); Neutrophils % (Auto) 87 % (37-80); Nucleated Red Blood Cell % 0 /100 WBC (0); Platelet Count 265 Thou/mm3 (140-440); RDW Standard Deviation 41.2 fL (35.1-43.9); White Blood Count 18.5 Thou/mm3 (3.8-10.6)
[2024-02-27 06:48] LABS: Glucose Estimated Average 143 mg/dL (80-131); Hemoglobin A1C 6.6 % Hgb (4.8-6.0)
[2024-02-27 06:51] LABS: Alanine Aminotransferase 82 U/L (10-49); Albumin, Serum 4.1 gm/dL (3.5-5.0); Albumin/Globulin Ratio 1.6 (1.2-2.2); Alkaline Phosphatase 92 U/L (46-116); Anion Gap 10 (7-16); Aspartate Amino Transferase 31 U/L (0-34); BUN/Creatinine Ratio 21 Ratio (12-20); Bilirubin,Total 1.1 mg/dL (0.3-1.2); Blood Urea Nitrogen 19 mg/dL (9-23); Carbon Dioxide 26.3 mMol/L (20.0-31.0); Cardiac Risk Estimate 2.6 RATIO (4.0-6.7); Chloride 102 mMol/L (98-107); Cholesterol 141 mg/dL (132-200); Creatinine (Component) 0.9 mg/dL (0.6-1.3); Estimated Creatinine Clearance 119.8 mL/min (>60); Globulin 2.6 gm/dL (2.3-3.5); Glucose 187 mg/dL (74-106); HDL Cholesterol 54 mg/dL (40-60); LDL Cholesterol,Calculated 79 mg/dL (0-130); Magnesium 2.1 mg/dL (1.6-2.6); Osmolality,Calculated 282 (275-295); Phosphorous 3.9 mg/dL (2.4-5.1); Potassium 3.5 mMol/L (3.4-5.1); Sodium 138 mMol/L (136-145); Thyroid Stimulating Hormone 0.62 uIU/mL (0.55-4.78); Total Protein 6.7 gm/dL (5.7-8.2); Triglycerides 38 mg/dL (30-150); eGFR > 60 See Note
[2024-02-27 06:52] LABS: Partial Thromboplastin Time 55.6 Seconds (22.0-36.0)
--- NOTE | 2024-02-27 07:25 | ESPR_ITS ---
<Statement entered by Pedro Alberto MD - 02/27/24 13:28> Patient was seen and examined at the bedside. Patient reported that he feels a lot better in terms of his breathing difficulty. Patient showed a good diuresis output on Lasix 40 IV twice daily. Cardiology has been consulted for further recommendations. A1c came out 6.6. Will follow-up on the echocardiogram and get cardiology recommendations. Electrolytes were repleted. Patient's and he was explained regarding the plan. Will likely give a work note before discharge. Of note, patient reported that he had a remote history of using cocaine and methamphetamines in the past. All labs and orders were reviewed. I saw and examined the patient, and I agree with current management stated by Dr Kari MD,PGY1. Plan of care was discussed with the attending physician and resident physician. Disclaimer: Despite multiple revisions, due to the dictation software being used, the document bellow may not be free of grammatical errors including phonetic/typographic errors. However, this does not deter from our commitment to providing health care in the patient's best interest in mind. Dr. Dolly MD, PGY 2 Documentation for date of: 02/27/24 Subjective Subjective Interval history: Patient was seen and examined at bedside this AM. No acute exents overnight. Patient tolerating diet, adequate urine output and mentation is at baseline. Patient endorses improvement of SOB Patient on diuresis with Lasix 40 Mg IV twice daily BUN improved to 19 from 24 and Cr improved to 0.9 from 1.1 Over the past 24 hours patient had a fluid balance of -4432 cc On admission patient's weight was 98 kg which decreased to 93 kg today From telemetry review patient's rate between 80s?90s overnight and sinus arrhythmia. K3.5 and Mg 2.1. Patient repleted with KCl 60 mEq p.o. x 1. Will maintain K >4 and Mg >2 at all times to prevent any further arrhythmias. Of note patient admitted to heavy methamphetamine and cocaine use in his 20s for about 5 years. He also endorsed having varicose veins for >5 years, noncompliant with stockings and follow-up. Exam Vital Signs Temp Pulse Resp BP Pulse Ox O2 Del Method O2 Flow Rate 96.8 F 86 17 119/63 99 Room Air 3 02/27/24 04:00 02/27/24 04:00 02/27/24 04:00 02/27/24 04:00 02/27/24 04:00 02/27/24 04:00 02/26/24 15:53 Narrative Exam Constitutional Alert, oriented x 3 and comfortable. Young male on O2 via NC HEENT Vision grossly intact. Patent nares. Trachea midline Respiratory Chest normal on inspection and clear auscultation bilaterally, reduced air entry at bases B/L Cardiovascular S1 and S2 audible, RRR. No murmurs carotid bruit. No gross JVD. Abdominal Soft and non tender to palpation in all quadrants. BS + Genitourinary No bladder tenderness, no flank pain. Normal to palpation Musculoskeletal Extremities tone within normal limits. 2+ LE edema up to knees B/L. Hyperpigmentation of shins B/L Neurological CN II - XII grossly intact. Extremity motor and sensation grossly intact. Skin Warm, dry and intact. No apparent lesions. Psychiatric Patient has good affect, is cooperative Objective Labs 02/27/24 05:35 02/27/24 05:35 Labs: Laboratory Results - last 24 hr 02/26/24 02/26/24 02/26/24 09:33 11:20 12:50 WBC 12.2 H RBC 5.25 Hgb 16.0 Hct 47.4 MCV 90 MCH 30.5 MCHC 33.8 RDW Std Deviation 42.2 Plt Count 236 Neut % (Auto) 78 Lymph % (Auto) 13 [place] % (Auto) 8 Eos % (Auto) 1 Baso % (Auto) 0 Neut # (Auto) 9.6 H Lymph # (Auto) 1.5 [place] # (Auto) 1.0 H Eos # (Auto) 0.1 Baso # (Auto) 0.1 Immature Gran # (Auto) 0.06 H Absolute Nucleated RBC 0.00 Immature Gran % 1 H Nucleated RBC % 0 APTT D-Dimer < 250 Puncture Site Right Radial ABG pH 7.39 ABG pCO2 42 ABG pO2 124 H ABG HCO3 25 ABG O2 Saturation 99 H ABG Base Excess 0 Oxygen Liter Flow 3 FiO2 21 Sodium 137 Potassium 4.8 Chloride 104 Carbon Dioxide 27.3 Anion Gap 6 L BUN 24 H Creatinine 1.1 Estim Creat Clear Calc 100.2 eGFR > 60 BUN/Creatinine Ratio 22 H Glucose [address] Glu mg/dL Hemoglobin A1c Calculated Osmolality 284 Calcium 9.1 Corrected Calcium 9.1 Phosphorus Magnesium 2.2 Total Bilirubin 0.8 AST 55 H ALT 120 H Alkaline Phosphatase 114 Troponin I 0.026 B-Natriuretic Peptide 556 H* Total Protein 6.8 Albumin 4.2 Globulin 2.6 Albumin/Globulin Ratio 1.6 Triglycerides Cholesterol LDL Cholesterol, Calc HDL Cholesterol Cholesterol/HDL Ratio TSH Ur Collection Type Clean Catch Urine Color Lt-Yellow Urine Clarity Clear Urine pH 5.5 Ur Specific [place] 1.019 Urine Protein Trace Urine Glucose (UA) Negative Urine Ketones Negative Urine Blood Negative Urine Nitrite Negative Urine Bilirubin Negative Urine Urobilinogen (Auto) Negative Ur Leukocyte Esterase Negative Urine RBC 2 Urine WBC < 1 Ur Squamous Epith Cells 0 Urine Bacteria None Hyaline Casts < 1 Urine Sperm Present A Ur Culture Indicated? Not Indicated 02/26/24 02/26/24 02/26/24 14:22 19:25 21:43 WBC RBC Hgb Hct MCV MCH MCHC RDW Std Deviation Plt Count Neut % (Auto) Lymph % (Auto) [place] % (Auto) Eos % (Auto) Baso % (Auto) Neut # (Auto) Lymph # (Auto) [place] # (Auto) Eos # (Auto) Baso # (Auto) Immature Gran # (Auto) Absolute Nucleated RBC Immature Gran % Nucleated RBC % APTT 25.9 46.1 H D D-Dimer Puncture Site ABG pH ABG pCO2 ABG pO2 ABG HCO3 ABG O2 Saturation ABG Base Excess Oxygen Liter Flow FiO2 Sodium Potassium Chloride Carbon Dioxide Anion Gap BUN Creatinine Estim Creat Clear Calc eGFR BUN/Creatinine Ratio Glucose Estimated Ave Glu mg/dL Hemoglobin A1c Calculated Osmolality Calcium Corrected Calcium Phosphorus Magnesium Total Bilirubin AST ALT Alkaline Phosphatase Troponin I 0.024 < 0.020 B-Natriuretic Peptide Total Protein Albumin Globulin Albumin/Globulin Ratio Triglycerides Cholesterol LDL Cholesterol, Calc HDL Cholesterol Cholesterol/HDL Ratio TSH Ur Collection Type Urine Color Urine Clarity Urine pH Ur Specific [place] Urine Protein Urine Glucose (UA) Urine Ketones Urine Blood Urine Nitrite Urine Bilirubin Urine Urobilinogen (Auto) Ur Leukocyte Esterase Urine RBC Urine WBC Ur Squamous Epith Cells Urine Bacteria Hyaline Casts Urine Sperm Ur Culture Indicated? 02/27/24 05:35 WBC 18.5 H D RBC 5.40 Hgb 16.6 H Hct 47.4 MCV 88 MCH 30.7 MCHC 35.0 RDW Std Deviation 41.2 Plt Count 265 Neut % (Auto) 87 H Lymph % (Auto) 7 L [place] % (Auto) 6 Eos % (Auto) 0 Baso % (Auto) 0 Neut # (Auto) 16.0 H Lymph # (Auto) 1.2 [place] # (Auto) 1.1 H Eos # (Auto) 0.0 Baso # (Auto) 0.0 Immature Gran # (Auto) 0.12 H Absolute Nucleated RBC 0.00 Immature Gran % 1 H Nucleated RBC % 0 APTT 55.6 H D-Dimer Puncture Site ABG pH ABG pCO2 ABG pO2 ABG HCO3 ABG O2 Saturation ABG Base Excess Oxygen Liter Flow FiO2 Sodium 138 Potassium 3.5 D Chloride 102 Carbon Dioxide 26.3 Anion Gap 10 BUN 19 Creatinine 0.9 Estim Creat Clear Calc 119.8 eGFR > 60 BUN/Creatinine Ratio 21 H Glucose [address] Glu mg/dL 143 H Hemoglobin A1c 6.6 H Calculated Osmolality 282 Calcium 9.0 Corrected Calcium 9.0 Phosphorus 3.9 Magnesium 2.1 Total Bilirubin 1.1 AST 31 ALT 82 H Alkaline Phosphatase 92 D Troponin I B-Natriuretic Peptide Total Protein 6.7 Albumin 4.1 Globulin 2.6 Albumin/Globulin Ratio 1.6 Triglycerides 38 Cholesterol 141 LDL Cholesterol, Calc 79 HDL Cholesterol 54 Cholesterol/HDL Ratio 2.6 L TSH 0.62 Ur Collection Type Urine Color Urine Clarity Urine pH Ur Specific [place] Urine Protein Urine Glucose (UA) Urine Ketones Urine Blood Urine Nitrite Urine Bilirubin Urine Urobilinogen (Auto) Ur Leukocyte Esterase Urine RBC Urine WBC Ur Squamous Epith Cells Urine Bacteria Hyaline Casts Urine Sperm Ur Culture Indicated? ABG Interpretation ABG results: 02/26/24 12:50 ABG pH 7.39 ABG pCO2 42 ABG pO2 124 H ABG HCO3 25 ABG O2 Saturation 99 H ABG Base Excess 0 Quality Measures Quality Measures VTE therapy (Heparin drip) Assessment & Plan Assessment Current Active Medications: Generic Name Dose Route Start Last Admin Trade Name Freq PRN Reason Stop Dose Admin Acetaminophen 650 mg 02/26/24 13:31 Acetaminophen 325 Mg Tablet PO 03/27/24 13:30 Q6H PRN Fever >101.5 Acetaminophen 650 mg 02/26/24 13:31 Acetaminophen 325 Mg Tablet PO 03/27/24 13:30 Q6H PRN PAIN SCALE 1-3 (mild Hydrocodone Bitart/Acetaminophen 1 tab 02/26/24 13:36 02/26/24 22:53 Hydrocodone/Apap 5/325 Tablet PO 03/02/24 13:35 1 tab Q4HR PRN Administration Pain Scale 4-10 Dextrose 25 ml 02/26/24 13:36 Dextrose 50%-Water Inj 50 Ml Syringe IV 03/27/24 13:35 Q15MIN PRN BG 50-70 responsive npo pt Dextrose 50 ml 02/26/24 13:36 Dextrose 50%-Water Inj 50 Ml Syringe IV 03/27/24 13:35 Q15MIN PRN BG <50 OR BG <70 & pt unresponsive Folic Acid 1 mg 02/26/24 21:00 02/26/24 21:34 Folic Acid 1 Mg Tablet PO 03/02/24 20:59 1 mg BID ESTHER Administration Furosemide 40 mg 02/27/24 09:00 Furosemide Inj 10 Mg/Ml 4ml Vial IVP 03/28/24 08:59 BIDD ESTHER Glucagon 1 mg 02/26/24 13:36 Glucagon Inj 1 Mg Vial IM Q15MIN PRN BG <70, and no IV access Heparin Sodium/Dextrose 25,000 unit in 250 mls @ 10 mls/hr 02/26/24 15:30 02/26/24 23:11 Heparin In D5w Ivpb IV 03/11/24 15:29 12.2 units/kg/hr .Q24H ESTHER 11.967 mls/hr Titration Protocol 10.195 UNITS/KG/HR Insulin Human Lispro 0 unit 02/26/24 17:00 02/26/24 17:01 Insulin Lispro (Admelog) 1 Unit/0.01 Ml Unit SC 03/27/24 16:59 2 unit AC ESTHER Administration Protocol Lorazepam 0.5 mg 02/26/24 15:59 Lorazepam 0.5 Mg Tablet PO 03/02/24 15:58 Q4HR PRN CIWA Score 2-6 Lorazepam 1 mg 02/26/24 15:59 Lorazepam 0.5 Mg Tablet PO 03/02/24 15:58 Q4HR PRN CIWA SCORE 7-11 Lorazepam 2 mg 02/26/24 15:59 Lorazepam 0.5 Mg Tablet PO 03/02/24 15:58 Q4HR PRN CIWA SCORE 12-15 Losartan Potassium 25 mg 02/26/24 13:45 02/26/24 15:33 Losartan Potassium 25 Mg Tablet PO 03/27/24 13:44 25 mg QDAY ESTHER Administration Nicotine 7 mg 02/26/24 16:00 02/26/24 16:35 Nicotine Patch 7 Mg/24 Hr Patch.Td24 TOP 03/27/24 15:59 Not Given QDAY ESTHER Sennosides 2 tab 02/26/24 13:31 Senna Tablet PO 03/27/24 13:30 BID PRN CONSTIPATION Protocol Thiamine HCl 100 mg 02/26/24 21:00 02/26/24 21:34 Thiamine 100 Mg Tablet PO 03/02/24 20:59 100 mg BID ESTHER Administration Plan This patient is a 48-year-old male with past medical history of essential hypertension, NIDDM type II presented with worsening shortness of breath, orthopnea, PND, cough and bilateral lower extremity swelling x 2 weeks. Doppler ultrasound lower extremities was significant for acute nonocclusive deep vein thrombus involving bilateral posterior tibial veins and chest x-ray showed vascular congestion. He was admitted for likely new onset heart failure and B/L lower extremity DVT. 1. Acute respiratory failure with hypoxia?resolving Secondary to 2. Likely new onset heart failure exacerbation Patient presented with worsening SOB as well as orthopnea and PND for 2-week duration. Patient stated he could not take more than 5 steps without feeling SOB On exam patient has significant lower extremity edema as well as crackles heard at lung bases. Chest x-ray was significant for cardiomegaly, B/L vascular congestion and pulmonary edema. EKG showed sinus tachycardia, rate 106 with prolonged QTc 550 BNP was elevated at 556 and troponin was negative x 3 NYHA class III stage C Pending transthoracic echocardiogram Patient did not have a diagnosis of heart failure before and was not on any diuretics at home. Patient endorses improvement of SOB Patient on diuresis with Lasix 40 Mg IV twice daily BUN improved to 19 from 24 and Cr improved to 0.9 from 1.1 Over the past 24 hours patient had a fluid balance of -4432 cc On admission patient's weight was 98 kg which decreased to 93 kg today Plan: ? 2G sodium restricted diet ? 1500 cc/day fluid restriction ? Daily weight ? Strict input output charting ? Continue diuresis with Lasix 40 Mg IV twice daily ? Continue losartan 25 Mg p.o. daily as part of GDMT ? Started on carvedilol 3.125 Mg p.o. twice daily as part of GDMT as patient's acute exacerbation is now resolving. ? Cardiology, Dr. Jordan consulted. Appreciate recommendation 3. B/L lower extremity DVT Patient endorses lower extremity swelling over the past 2 weeks. 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 Venous duplex lower extremity completed on 02/16/2024 findings include: Positive for acute nonocclusive deep vein thrombus involving the bilateral posterior tibial veins Plan: ? Continue heparin infusion - To transition to apixaban after cardiology consult once no procedures anticipated. 4. JOSE DE JESUS?resolving On admission patient's BUN and CR 24 and 1.1. Currently BUN improved to 19 and CR improved to 0.9. Plan: ? Continue IV diuresis ? Avoid nephrotoxic agents 5. Essential hypertension 6. Hypertensive urgency?resolved On admission patient's BP 156/121, currently BP 119/63. Patient received metoprolol tartrate 50 Mg x 1 and clonidine 0.2 Mg x 1 in the ED. Patient was not on any home medication. Plan: ? Continue losartan 25 Mg p.o. daily 7. NIDDM type II [6.6] Patient previously controlled on diet and metformin, however he stopped taking metformin since 2019. On this admission HbA1c 6.6% Plan: ? Insulin sliding scale to cover for any glucose spikes. 8. Hyperlipidemia On admission lipid panel significant for cholesterol 141, LDL 79, HDL 54 2013 ASCVD : 9.3%; high intensity statin recommended because of diabetes and 10- year risk of >7.5%. Plan: ? Started on atorvastatin 40 Mg p.o. at bedtime 9. Chronic venous insufficiency On admission patient had B/L lower extremity swelling along with hyperpigmentation along his shins consistent with hemosiderin deposits from chronic venous stasis. Patient states that for >5 years he was diagnosed with varicose veins but was noncompliant with stockings and follow-up. 10. Transaminitis?resolving On admission AST 55 and ALT 120. Which currently down trended to AST 31 and ALT 82 which likely suggests hepatic congestion from heart failure exacerbation. Plan: ? Continue to monitor on CMP 11. Alcohol use Patient states he drinks 1?2 beers per day with the last drink being 2 days prior to admission. Plan: ? Continue folic acid 1 Mg p.o. twice daily and thiamine 100 Mg p.o. twice daily. ? [place] protocol 12. Nicotine dependence Patient states he smokes 2-3 cigarettes/week with approximately 10 pack years. Will monitor for now before starting patient on NRT along with varenicline while in hospital. 13. History of methamphetamine and cocaine use Patient states that for about 5 years in his 20s he has really used methamphetamine and cocaine. This may be a risk factor for his new onset congestive heart failure. 14. Leukocytosis WBC 18.5. Etiology likely secondary to hemoconcentration after diuresis. Health maintenance: Disposition: IV diuresis, pending cardiology recommendations. Heparin infusion for DVT Diet: Cardiac Lines: pIVs GI Prophylaxis: Pantoprazole Thrombo Prophylaxis: On heparin infusion for DVT Code status: FULL CODE Plan of care discussed with Attending Dr. Alberto and PGY2 Dr. Dolly Pierce MD PGY 1 Attending Provider Attestation/Addendum Remberto, Alba Alberto, , attest that I was physically present for the [place] portions of the service and evaluated the patient with the resident and I reviewed and discussed the case with the resident and agree with the resident's findings and plans of care as documented above Patient seen and eval this a.m. Patient states that he has noted that he has had worsening bilateral lower extremity swelling, shortness of breath and dyspnea on exertion for the past 2 weeks. Patient denies any active chest pain, fevers, chills, nausea, vomiting otherwise. Patient does not know any significant family history since he does not talk to his family. He does have a remote history of meth and cocaine use. Patient is a social tobacco user he states. He states that he noted the lower extremity swelling to be worsening up to his knees for the past 2 weeks. Patient is always on his feet at work, but noted that he has had more trouble after taking 5 steps due to worsening shortness of breath on exertion. He is currently on heparin drip due to bilateral lower extremity DVT. Will consult cardiology due to concern for new onset CHF. CT chest was reviewed and reveals bilateral pleural effusions. Will continue fluid restriction, IV diuresis, beta-owen and ARB. Will continue to monitor electrolytes closely. Patient states he has a history of being diagnosed with diabetes after he was treated with an steroid epidural injection in his back. Will continue with daily weights and monitoring strict I's and O's. Patient currently requiring 2 L nasal cannula. He reports feeling some improvement after receiving IV Lasix.
[2024-02-27] MEDS: INSULIN LISPRO (AdmeLOG) 1 UNIT/0.01 ML UNIT SC ×3 (08:00→16:37)
[2024-02-27] MEDS: POTASSIUM CHLORIDE 20 mEq TABCR PO (08:06)
[2024-02-27] MEDS: FUROSEMIDE INJ 10 MG/ML 4ML VIAL 40 MG IVP (08:06)
[2024-02-27] MEDS: THIAMINE 100 MG TABLET PO ×2 (08:07→20:56)
[2024-02-27] MEDS: LOSARTAN POTASSIUM 25 MG TABLET PO (08:07)
[2024-02-27] MEDS: POTASSIUM CHLORIDE 20 mEq TABCR 40 MEQ PO (08:07)
[2024-02-27] MEDS: FOLIC ACID 1 MG TABLET PO ×2 (08:07→20:56)
[2024-02-27 12:09] LABS: Partial Thromboplastin Time 42.4 Seconds (22.0-36.0)
[2024-02-27] MEDS: HEPARIN SOD INJ 5000 UNIT/ML VIAL 2000 UNIT IVP (13:02)
[2024-02-27] MEDS: Heparin/D5w 25K 250 ML Ivpb 25,000 UNIT/250 ML BAG 11.967 UNIT IV (13:10)
[2024-02-27] MEDS: PANTOPRAZOLE 40 MG TABLET PO (13:14)
[2024-02-27] MEDS: HYDROcodone/APAP 5/325 TABLET 1 TAB PO (13:16)
[2024-02-27] MEDS: HEPARIN SOD INJ 5000 UNIT/ML VIAL 1750 UNIT IVP (15:27)
[2024-02-27] MEDS: Heparin/D5w 25K 250 ML Ivpb 25,000 UNIT/250 ML BAG 16.835 UNIT IV (15:31)
[2024-02-27] MEDS: carVEDILOL 3.125 MG TABLET PO (16:41)
[2024-02-27] MEDS: FUROSEMIDE INJ 10 MG/ML VIAL 2 ML 20 MG IVP (17:29)
[2024-02-27 20:56] LABS: Partial Thromboplastin Time 73.2 Seconds (22.0-36.0)
[2024-02-27] MEDS: ATORVASTATIN CALCIUM 20 MG TABLET 40 MG PO (20:56)
[2024-02-28] VITALS (10 sets, daily range): BP systolic 107–149; BP diastolic 73–92; PULSE 14–114; RESP 14–20; TEMP 35.9–36.6; O2SAT 93–99; BMI 28.5
[2024-02-28] MEDS: Heparin/D5w 25K 250 ML Ivpb 25,000 UNIT/250 ML BAG 16.835 UNIT IV ×2 (05:09→21:00)
[2024-02-28 06:05] LABS: Basophils # (Auto) 0.1 Thou/mm3 (0.0-0.2); Basophils % (Auto) 1 % (0-2.5); Eosinophils # (Auto) 0.1 Thou/mm3 (0.0-0.5); Eosinophils % (Auto) 1 % (0-10); Hematocrit 47.2 % (41.0-53.0); Hemoglobin 16.1 g/dL (13.5-16.0); Immature Granulocytes % (Auto) 1 % (0-0); Immature Granulocytes Auto 0.07 Thou/mm3 (0.00-0.00); Lymphocytes # (Auto) 1.9 Thou/mm3 (1.0-4.8); Lymphocytes % (Auto) 14 % (10-50); Mean Corpuscular HGB Conc 34.1 g/dl (31.0-37.0); Mean Corpuscular Hemoglobin 30.6 pg (25.0-35.0); Mean Corpuscular Volume 90 fL (80-100); Monocytes # (Auto) 1.4 Thou/mm3 (0.0-0.8); Monocytes % (Auto) 11 % (0-12); Neutrophils # (Auto) 9.8 Thou/mm3 (1.8-7.7); Neutrophils % (Auto) 74 % (37-80); Nucleated Red Blood Cell % 0 /100 WBC (0); Platelet Count 210 Thou/mm3 (140-440); RDW Standard Deviation 43.4 fL (35.1-43.9); Red Blood Count 5.26 Miln/mm3 (4.50-5.90); White Blood Count 13.2 Thou/mm3 (3.8-10.6)
[2024-02-28 06:32] LABS: Alanine Aminotransferase 69 U/L (10-49); Albumin, Serum 3.8 gm/dL (3.5-5.0); Albumin/Globulin Ratio 1.5 (1.2-2.2); Alkaline Phosphatase 82 U/L (46-116); Anion Gap 7 (7-16); Aspartate Amino Transferase 15 U/L (0-34); BUN/Creatinine Ratio 19 Ratio (12-20); Bilirubin,Total 0.8 mg/dL (0.3-1.2); Blood Urea Nitrogen 21 mg/dL (9-23); Calcium 8.9 mg/dL (8.3-10.6); Calcium (Corrected) 9.1 mg/dL (8.5-10.1); Carbon Dioxide 29.2 mMol/L (20.0-31.0); Chloride 103 mMol/L (98-107); Creatinine (Component) 1.1 mg/dL (0.6-1.3); Estimated Creatinine Clearance 97.8 mL/min (>60); Globulin 2.6 gm/dL (2.3-3.5); Glucose 151 mg/dL (74-106); Magnesium 2.2 mg/dL (1.6-2.6); Osmolality,Calculated 283 (275-295); Phosphorous 2.9 mg/dL (2.4-5.1); Potassium 3.8 mMol/L (3.4-5.1); Sodium 139 mMol/L (136-145); Total Protein 6.4 gm/dL (5.7-8.2); eGFR > 60 See Note
[2024-02-28 06:54] LABS: INR 1.1 (0.9-1.3); Partial Thromboplastin Time 75.4 Seconds (22.0-36.0); Prothrombin Time 12.3 Seconds (9.0-12.2)
[2024-02-28] MEDS: INSULIN LISPRO (AdmeLOG) 1 UNIT/0.01 ML UNIT SC (07:41)
[2024-02-28] MEDS: carVEDILOL 3.125 MG TABLET PO ×2 (08:10→17:26)
[2024-02-28] MEDS: PANTOPRAZOLE 40 MG TABLET PO (08:11)
[2024-02-28] MEDS: FOLIC ACID 1 MG TABLET PO ×2 (08:11→20:23)
[2024-02-28] MEDS: LOSARTAN POTASSIUM 25 MG TABLET PO (08:11)
[2024-02-28] MEDS: FUROSEMIDE INJ 10 MG/ML 4ML VIAL 40 MG IVP (08:11)
[2024-02-28] MEDS: THIAMINE 100 MG TABLET PO ×2 (08:11→20:23)
[2024-02-28] MEDS: POTASSIUM CHLORIDE 20 mEq TABCR 40 MEQ PO (08:29)
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
[2024-02-28] MEDS: DAPAGLIFLOZIN PROPANEDIOL 5 MG TABLET PO (12:34)
[2024-02-28] MEDS: DiphenhydrAMINE 25 MG CAPSULE PO (13:13)
--- NOTE | 2024-02-28 13:32 | PC.SS ---
Patient is alert/oriented. Patient states he resides with family. Patient is independent with ADL's. No DME at home. Patient admitted with new onset of CHF. No 02. Patient states he has not seen a p.c.p. in years. Patient is agreeable to following up at the [facility] to get established with a new p.c.p. Patient states his is his [facility]. No prior list of medications. Patient d/c plan is to return home. No further d/c needs.
--- NOTE | 2024-02-28 13:43 | ESPR_ITS ---
<Statement entered by Pedro Alberto MD - 02/28/24 16:19> Patient was seen and examined at the bedside. Patient is doing well reported to have mild leg cramps therefore lasix was adjusted as once daily as hes showing good diuresis output. Cardiology rec to continue current management and will follow on echo. Farxiga was dced as patient had mild allergic reaction with flushing on face. Electrolytes were repleted. All labs and orders were reviewed. I saw and examined the patient, and I agree with current management stated by Dr Kari MD,PGY1. Plan of care was discussed with the attending physician and resident physician. Disclaimer: Despite multiple revisions, due to the dictation software being used, the document bellow may not be free of grammatical errors including phonetic/typographic errors. However, this does not deter from our commitment to providing health care in the patient's best interest in mind. Dr. Dolly MD, PGY 2 Documentation for date of: 02/28/24 Subjective Subjective Interval history: Patient was seen and examined at bedside this AM. No acute exents overnight. Patient tolerating diet, adequate urine output and mentation is at baseline. Patient has no complaints. Denies any chest pain/pressure, SOB or palpitation. Patient on diuresis with Lasix 40 Mg IV once daily BUN increased to 21 from 19 and Cr increased to 1.1 from 0.9 Over the past 24 hours patient had a fluid balance of - 2200 cc On admission patient's weight was 98 kg which decreased to 92.9 kg today From telemetry review patient's rate between 80s?90s overnight and sinus arrhythmia. K3.8 and Mg 2.2. Patient repleted with KCl 40 mEq p.o. x 1. Will maintain K >4 and Mg >2 at all times to prevent any further arrhythmias. Patient started on Farxiga today as part of GDMT, subsequently he developed flushing, fever and hives. He was given Benadryl p.o. x 1 and his symptoms subsided. Farxiga was subsequently discontinued. Exam Vital Signs Temp Pulse Resp BP Pulse Ox O2 Del Method O2 Flow Rate 97.6 F 87 18 107/82 98 Room Air 2 02/28/24 08:00 02/28/24 08:52 02/28/24 08:52 02/28/24 08:11 02/28/24 08:52 02/28/24 08:00 02/28/24 08:52 Narrative Exam Constitutional Alert, oriented x 3 and comfortable. Young male on RA HEENT Vision grossly intact. Patent nares. Trachea midline Respiratory Chest normal on inspection and clear auscultation bilaterally Cardiovascular S1 and S2 audible, RRR. No murmurs carotid bruit. No gross JVD. Abdominal Soft and non tender to palpation in all quadrants. BS + Genitourinary No bladder tenderness, no flank pain. Normal to palpation Musculoskeletal Extremities tone within normal limits. 1+ LE edema up to knees B/L. Hyperpigmentation of shins B/L Neurological CN II - XII grossly intact. Extremity motor and sensation grossly intact. Skin Warm, dry and intact. No apparent lesions. Psychiatric Patient has good affect, is cooperative Objective Labs 02/29/24 05:21 02/29/24 05:21 Labs: Laboratory Results - last 24 hr 02/27/24 02/28/24 19:56 04:42 WBC 13.2 H D RBC 5.26 Hgb 16.1 H Hct 47.2 MCV 90 MCH 30.6 MCHC 34.1 RDW Std Deviation 43.4 Plt Count 210 D Neut % (Auto) 74 Lymph % (Auto) 14 [place] % (Auto) 11 Eos % (Auto) 1 Baso % (Auto) 1 Neut # (Auto) 9.8 H Lymph # (Auto) 1.9 [place] # (Auto) 1.4 H Eos # (Auto) 0.1 Baso # (Auto) 0.1 Immature Gran # (Auto) 0.07 H Absolute Nucleated RBC 0.00 Immature Gran % 1 H Nucleated RBC % 0 PT 12.3 H INR 1.1 APTT 73.2 H D 75.4 H Sodium 139 Potassium 3.8 Chloride 103 Carbon Dioxide 29.2 Anion Gap 7 BUN 21 Creatinine 1.1 Estim Creat Clear Calc 97.8 eGFR > 60 BUN/Creatinine Ratio 19 Glucose 151 H Calculated Osmolality 283 Calcium 8.9 Corrected Calcium 9.1 Phosphorus 2.9 Magnesium 2.2 Total Bilirubin 0.8 AST 15 ALT 69 H Alkaline Phosphatase 82 Total Protein 6.4 Albumin 3.8 Globulin 2.6 Albumin/Globulin Ratio 1.5 ABG Interpretation ABG results: 02/26/24 12:50 ABG pH 7.39 ABG pCO2 42 ABG pO2 124 H ABG HCO3 25 ABG O2 Saturation 99 H ABG Base Excess 0 Quality Measures Quality Measures VTE therapy (Heparin drip) Assessment & Plan Assessment Current Active Medications: Generic Name Dose Route Start Last Admin Trade Name Freq PRN Reason Stop Dose Admin Acetaminophen 650 mg 02/26/24 13:31 Acetaminophen 325 Mg Tablet PO 03/27/24 13:30 Q6H PRN Fever >101.5 Acetaminophen 650 mg 02/26/24 13:31 Acetaminophen 325 Mg Tablet PO 03/27/24 13:30 Q6H PRN PAIN SCALE 1-3 (mild Hydrocodone Bitart/Acetaminophen 1 tab 02/26/24 13:36 02/27/24 13:16 Hydrocodone/Apap 5/325 Tablet PO 03/02/24 13:35 1 tab Q4HR PRN Administration Pain Scale 4-10 Atorvastatin Calcium 40 mg 02/27/24 21:00 02/27/24 20:56 Atorvastatin Calcium 20 Mg Tablet PO 03/28/24 20:59 40 mg HS ESTHER Administration Carvedilol 3.125 mg 02/27/24 17:30 02/28/24 08:10 Carvedilol 3.125 Mg Tablet PO 03/28/24 17:29 3.125 mg BIDWM ESTHER Administration Dapagliflozin 5 mg 02/28/24 11:00 02/28/24 12:34 Dapagliflozin Propanediol 5 Mg Tablet PO 03/29/24 10:59 5 mg QAM ESTHER Administration Dextrose 25 ml 02/26/24 13:36 Dextrose 50%-Water Inj 50 Ml Syringe IV 03/27/24 13:35 Q15MIN PRN BG 50-70 responsive npo pt Dextrose 50 ml 02/26/24 13:36 Dextrose 50%-Water Inj 50 Ml Syringe IV 03/27/24 13:35 Q15MIN PRN BG <50 OR BG <70 & pt unresponsive Diphenhydramine HCl 25 mg 02/28/24 12:56 Diphenhydramine 25 Mg Capsule PO 03/29/24 12:55 Q6HR PRN Itching or hives Folic Acid 1 mg 02/26/24 21:00 02/28/24 08:11 Folic Acid 1 Mg Tablet PO 03/02/24 20:59 1 mg BID ESTHER Administration Furosemide 40 mg 02/28/24 09:00 02/28/24 08:11 Furosemide Inj 10 Mg/Ml 4ml Vial IVP 03/29/24 08:59 40 mg QDAY ESTHER Administration Glucagon 1 mg 02/26/24 13:36 Glucagon Inj 1 Mg Vial IM Q15MIN PRN BG <70, and no IV access Heparin Sodium/Dextrose 25,000 unit in 250 mls @ 16.835 mls/hr 02/27/24 14:45 02/28/24 07:03 Heparin In D5w Ivpb IV 03/12/24 14:44 18 units/kg/hr .[id number] ESTHER 16.835 mls/hr Titration Protocol 18 UNITS/KG/HR Insulin Human Lispro 0 unit 02/26/24 17:00 02/28/24 12:33 Insulin Lispro (Admelog) 1 Unit/0.01 Ml Unit SC 03/27/24 16:59 Not Given AC ESTHER Protocol Lorazepam 0.5 mg 02/26/24 15:59 Lorazepam 0.5 Mg Tablet PO 03/02/24 15:58 Q4HR PRN CIWA Score 2-6 Lorazepam 1 mg 02/26/24 15:59 Lorazepam 0.5 Mg Tablet PO 03/02/24 15:58 Q4HR PRN CIWA SCORE 7-11 Lorazepam 2 mg 02/26/24 15:59 Lorazepam 0.5 Mg Tablet PO 03/02/24 15:58 Q4HR PRN CIWA SCORE 12-15 Losartan Potassium 25 mg 02/29/24 09:00 Losartan Potassium 25 Mg Tablet PO 03/27/24 13:44 QDAY ESTHER Nicotine 7 mg 02/26/24 16:00 02/28/24 08:12 Nicotine Patch 7 Mg/24 Hr Patch.Td24 TOP 03/27/24 15:59 Not Given QDAY ESTHER Pantoprazole Sodium 40 mg 02/27/24 12:00 02/28/24 08:11 Pantoprazole 40 Mg Tablet PO 03/28/24 11:59 40 mg QDAY ESTHER Administration Sennosides 2 tab 02/26/24 13:31 Senna Tablet PO 03/27/24 13:30 BID PRN CONSTIPATION Protocol Thiamine HCl 100 mg 02/26/24 21:00 02/28/24 08:11 Thiamine 100 Mg Tablet PO 03/02/24 20:59 100 mg BID ESTHER Administration Plan This patient is a 48-year-old male with past medical history of essential hypertension, NIDDM type II presented with worsening shortness of breath, orthopnea, PND, cough and bilateral lower extremity swelling x 2 weeks. Doppler ultrasound lower extremities was significant for acute nonocclusive deep vein thrombus involving bilateral posterior tibial veins and chest x-ray showed vascular congestion. He was admitted for likely new onset heart failure and B/L lower extremity DVT. 1. Acute respiratory failure with hypoxia?resolving Secondary to 2. Likely new onset heart failure exacerbation Patient presented with worsening SOB as well as orthopnea and PND for 2-week duration. Patient stated he could not take more than 5 steps without feeling SOB On exam patient has significant lower extremity edema as well as crackles heard at lung bases. Chest x-ray was significant for cardiomegaly, B/L vascular congestion and pulmonary edema. EKG showed sinus tachycardia, rate 106 with prolonged QTc 550 BNP was elevated at 556 and troponin was negative x 3 NYHA class III stage C Pending transthoracic echocardiogram Patient did not have a diagnosis of heart failure before and was not on any diuretics at home. Patient has no complaints. Denies any chest pain/pressure, SOB or palpitation. Patient on diuresis with Lasix 40 Mg IV once daily Over the past 24 hours patient had a fluid balance of - 2200 cc On admission patient's weight was 98 kg which decreased to 92.9 kg today Patient started on Farxiga today as part of GDMT, subsequently he developed flushing, fever and hives. He was given Benadryl p.o. x 1 and his symptoms subsided. Farxiga was subsequently discontinued. Plan: ? 2G sodium restricted diet ? 1500 cc/day fluid restriction ? Daily weight ? Strict input output charting ? Decreased diuresis to Lasix 40 Mg IV daily from Lasix 40 Mg IV twice daily ? Continue losartan 25 Mg p.o. daily as part of GDMT ? Continue on carvedilol 3.125 Mg p.o. twice daily as part of GDMT as patient's acute exacerbation is now resolving. - Discontinued dapagliflozin as patient developed allergic reaction. ? Cardiology, Dr. Jordan consulted. Appreciate recommendation 3. B/L lower extremity DVT Patient endorses lower extremity swelling over the past 2 weeks. 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 Venous duplex lower extremity completed on 02/16/2024 findings include: Positive for acute nonocclusive deep vein thrombus involving the bilateral posterior tibial veins Patient had unexplained B/L DVTs we will pursue further hypercoagulable workup Plan: ? Hypercoagulable workup including: Activated protein C, prothrombin gene mutation, protein C&S, Antithrombin, factor V Leiden, anticardiolipin antibodies, anti- beta-2 glycoprotein I antibodies, Lupus anticoagulant ? Continue heparin infusion - To transition to apixaban after cardiology consult once no procedures anticipated. 4. JOSE DE JESUS On admission patient's BUN and CR 24 and 1.1. BUN increased to 21 from 19 and Cr increased to 1.1 from 0.9 Plan: ? Continue IV diuresis ? Avoid nephrotoxic agents 5. Essential hypertension 6. Hypertensive urgency?resolved On admission patient's BP 156/121, currently BP 119/63. Patient received metoprolol tartrate 50 Mg x 1 and clonidine 0.2 Mg x 1 in the ED. Patient was not on any home medication. Plan: ? Continue losartan 25 Mg p.o. daily 7. NIDDM type II [6.6] Patient previously controlled on diet and metformin, however he stopped taking metformin since 2019. On this admission HbA1c 6.6% Plan: ? Insulin sliding scale to cover for any glucose spikes. 8. Hyperlipidemia On admission lipid panel significant for cholesterol 141, LDL 79, HDL 54 2013 ASCVD : 9.3%; high intensity statin recommended because of diabetes and 10- year risk of >7.5%. Plan: ? Started on atorvastatin 40 Mg p.o. at bedtime 9. Chronic venous insufficiency On admission patient had B/L lower extremity swelling along with hyperpigmentation along his shins consistent with hemosiderin deposits from chronic venous stasis. Patient states that for >5 years he was diagnosed with varicose veins but was noncompliant with stockings and follow-up. 10. Transaminitis?resolving On admission AST 55 and ALT 120. Which currently down trended to AST 31 and ALT 82 which likely suggests hepatic congestion from heart failure exacerbation. Plan: ? Continue to monitor on CMP 11. Alcohol use Patient states he drinks 1?2 beers per day with the last drink being 2 days prior to admission. Plan: ? Continue folic acid 1 Mg p.o. twice daily and thiamine 100 Mg p.o. twice daily. ? CIWA protocol 12. Nicotine dependence Patient states he smokes 2-3 cigarettes/week with approximately 10 pack years. Will monitor for now before starting patient on NRT along with varenicline while in hospital. 13. History of methamphetamine and cocaine use Patient states that for about 5 years in his 20s he has really used methamphetamine and cocaine. This may be a risk factor for his new onset congestive heart failure. 14. Leukocytosis WBC 18.5. Etiology likely secondary to hemoconcentration after diuresis. Health maintenance: Disposition: IV diuresis, pending cardiology recommendations. Heparin infusion for DVT. Pending echocardiogram Diet: Cardiac Lines: pIVs GI Prophylaxis: Pantoprazole Thrombo Prophylaxis: On heparin infusion for DVT Code status: FULL CODE Plan of care discussed with Attending Dr. Alberto and PGY2 Dr. Dolly Pierce MD PGY 1 Attending Provider Attestation/Addendum I, Alba Alberto DO, attest that I was physically present for the [place] portions of the service and evaluated the patient with the resident and I reviewed and discussed the case with the resident and agree with the resident's findings and plans of care as documented above Patient seen and eval this a.m. Patient was complaining of feeling hot and was very flushed in his face and chest. He stated that the symptoms started after he received a new medication. Patient was started on Farxiga this morning as he was noted to have an A1c of 6.6. Will hold the Farxiga at this time. Patient appears to be euvolemic at this time. He is now on room air and in no acute respiratory distress. He reports feeling much improved at this time. Pending echocardiogram. Continue Lasix [address] patient on goal- directed medical therapy once echo has resulted.
[2024-02-28] MEDS: ATORVASTATIN CALCIUM 20 MG TABLET 40 MG PO (20:22)
[2024-02-29] VITALS (11 sets, daily range): BP systolic 97–134; BP diastolic 78–90; PULSE 75–103; RESP 12–99; TEMP 35.8–36.2; O2SAT 95–99
[2024-02-29 06:24] LABS: Misc Send Out* See Sep Rpt
[2024-02-29 06:26] LABS: Basophils % (Auto) 0 % (0-2.5); Eosinophils # (Auto) 0.1 Thou/mm3 (0.0-0.5); Eosinophils % (Auto) 1 % (0-10); Hematocrit 52.1 % (41.0-53.0); Hemoglobin 17.6 g/dL (13.5-16.0); Immature Granulocytes % (Auto) 1 % (0-0); Immature Granulocytes Auto 0.08 Thou/mm3 (0.00-0.00); Lymphocytes # (Auto) 1.7 Thou/mm3 (1.0-4.8); Lymphocytes % (Auto) 13 % (10-50); Mean Corpuscular HGB Conc 33.8 g/dl (31.0-37.0); Mean Corpuscular Hemoglobin 30.5 pg (25.0-35.0); Mean Corpuscular Volume 90 fL (80-100); Monocytes # (Auto) 1.3 Thou/mm3 (0.0-0.8); Monocytes % (Auto) 10 % (0-12); Neutrophils # (Auto) 9.8 Thou/mm3 (1.8-7.7); Neutrophils % (Auto) 75 % (37-80); Nucleated Red Blood Cell % 0 /100 WBC (0); Platelet Count 185 Thou/mm3 (140-440); RDW Standard Deviation 43.6 fL (35.1-43.9); Red Blood Count 5.77 Miln/mm3 (4.50-5.90)
[2024-02-29 07:33] LABS: Alanine Aminotransferase 66 U/L (10-49); Albumin/Globulin Ratio 1.3 (1.2-2.2); Alkaline Phosphatase 85 U/L (46-116); Anion Gap 10 (7-16); Aspartate Amino Transferase 37 U/L (0-34); BUN/Creatinine Ratio 18 Ratio (12-20); Blood Urea Nitrogen 16 mg/dL (9-23); Calcium 9.6 mg/dL (8.3-10.6); Calcium (Corrected) 9.6 mg/dL (8.5-10.1); Carbon Dioxide 24.5 mMol/L (20.0-31.0); Chloride 106 mMol/L (98-107); Creatinine (Component) 0.9 mg/dL (0.6-1.3); Estimated Creatinine Clearance 118.3 mL/min (>60); Globulin 3.1 gm/dL (2.3-3.5); Glucose 122 mg/dL (74-106); Magnesium 2.2 mg/dL (1.6-2.6); Osmolality,Calculated 281 (275-295); Potassium 4.3 mMol/L (3.4-5.1); Sodium 140 mMol/L (136-145); Total Protein 7.1 gm/dL (5.7-8.2); eGFR > 60 See Note
[2024-02-29 07:42] LABS: Partial Thromboplastin Time 71.7 Seconds (22.0-36.0)
[2024-02-29] MEDS: FOLIC ACID 1 MG TABLET PO ×2 (07:59→21:44)
[2024-02-29] MEDS: PANTOPRAZOLE 40 MG TABLET PO (07:59)
[2024-02-29] MEDS: LOSARTAN POTASSIUM 25 MG TABLET PO (07:59)
[2024-02-29] MEDS: carVEDILOL 3.125 MG TABLET PO ×2 (07:59→17:07)
[2024-02-29] MEDS: THIAMINE 100 MG TABLET PO ×2 (07:59→21:44)
[2024-02-29] MEDS: INSULIN LISPRO (AdmeLOG) 1 UNIT/0.01 ML UNIT SC ×3 (08:00→17:07)
[2024-02-29] MEDS: FUROSEMIDE INJ 10 MG/ML 4ML VIAL 40 MG IVP (08:00)
--- NOTE | 2024-02-29 08:13 | ESPR_ITS ---
<Statement entered by Pedro Alberto MD - 02/29/24 16:46> Patient was seen and examined at the bedside. Patient reported that he feels marked improvement in his shortness of breath and lower extremity swelling. He denied chest pain or fever or chills. Hole Puncher Strap recommended to switch IV Lasix to p.o. 40 mg daily and continue heparin drip for PE treatment. Hypercoagulation factors including factor V Leyden, APLA and microglobulin were sent out. Patient will need to follow-up with them as outpatient. Currently awaiting echocardiogram read. Electrolytes were managed. All labs and orders were reviewed. I saw and examined the patient, and I agree with current management stated by Dr Kari MD,PGY1. Plan of care was discussed with the attending physician and resident physician. Disclaimer: Despite multiple revisions, due to the dictation software being used, the document bellow may not be free of grammatical errors including phonetic/typographic errors. However, this does not deter from our commitment to providing health care in the patient's best interest in mind. Dr. Dolly MD, PGY 2 Documentation for date of: 02/29/24 Subjective Subjective Interval history: Patient was seen and examined at bedside this AM. No acute exents overnight. Patient tolerating diet, adequate urine output and mentation is at baseline. Patient has no complaints. Denies any chest pain/pressure, SOB or palpitation. Patient on diuresis with Lasix 40 Mg IV once daily BUN decreased to 16 from 21 and Cr decreased to 0.9 from 1.1 Over the past 24 hours patient had a fluid balance of - 2921 cc On admission patient's weight was 98 kg which decreased to 90.86 kg today From telemetry review patient's rate in 90s overnight with occasional PAC's K4.3 and Mg 2.2. Will maintain K >4 and Mg >2 at all times to prevent any further arrhythmias. Pending echo Exam Vital Signs Temp Pulse Resp BP Pulse Ox O2 Del Method O2 Flow Rate 96.8 F 88 20 134/82 H 99 Room Air 2 02/29/24 04:00 02/29/24 08:00 02/29/24 04:00 02/29/24 08:00 02/29/24 04:00 02/29/24 04:00 02/28/24 08:52 Narrative Exam Constitutional Alert, oriented x 3 and comfortable. Young male on RA HEENT Vision grossly intact. Patent nares. Trachea midline Respiratory Chest normal on inspection and clear auscultation bilaterally Cardiovascular S1 and S2 audible, RRR. No murmurs carotid bruit. No gross JVD. Abdominal Soft and non tender to palpation in all quadrants. BS + Genitourinary No bladder tenderness, no flank pain. Normal to palpation Musculoskeletal Extremities tone within normal limits. Trace LE edema up to knees B/L. Hyperpigmentation of shins B/L Neurological CN II - XII grossly intact. Extremity motor and sensation grossly intact. Skin Warm, dry and intact. No apparent lesions. Psychiatric Patient has good affect, is cooperative Objective Labs 03/01/24 05:22 03/01/24 05:22 Labs: Laboratory Results - last 24 hr 02/29/24 02/29/24 02/29/24 05:21 05:21 05:21 WBC 13.0 H RBC 5.77 Hgb 17.6 H* Hct 52.1 MCV 90 MCH 30.5 MCHC 33.8 RDW Std Deviation 43.6 Plt Count 185 Neut % (Auto) 75 Lymph % (Auto) 13 [place] % (Auto) 10 Eos % (Auto) 1 Baso % (Auto) 0 Neut # (Auto) 9.8 H Lymph # (Auto) 1.7 [place] # (Auto) 1.3 H Eos # (Auto) 0.1 Baso # (Auto) 0.0 Immature Gran # (Auto) 0.08 H Absolute Nucleated RBC 0.00 Immature Gran % 1 H Nucleated RBC % 0 APTT 71.7 H Sodium 140 Potassium 4.3 D Chloride 106 Carbon Dioxide 24.5 Anion Gap 10 BUN 16 Creatinine 0.9 Estim Creat Clear Calc 118.3 eGFR > 60 BUN/Creatinine Ratio 18 Glucose 122 H Calculated Osmolality 281 Calcium 9.6 Corrected Calcium 9.6 Phosphorus 3.0 Magnesium 2.2 Total Bilirubin 1.0 AST 37 H ALT 66 H Alkaline Phosphatase 85 Total Protein 7.1 Albumin 4.0 Globulin 3.1 Albumin/Globulin Ratio 1.3 Misc Test Result Cancelled Cancelled Cancelled 02/29/24 02/29/24 02/29/24 05:21 05:21 05:21 WBC RBC Hgb Hct MCV MCH MCHC RDW Std Deviation Plt Count Neut % (Auto) Lymph % (Auto) [place] % (Auto) Eos % (Auto) Baso % (Auto) Neut # (Auto) Lymph # (Auto) [place] # (Auto) Eos # (Auto) Baso # (Auto) Immature Gran # (Auto) Absolute Nucleated RBC Immature Gran % Nucleated RBC % APTT Sodium Potassium Chloride Carbon Dioxide Anion Gap BUN Creatinine Estim Creat Clear Calc eGFR BUN/Creatinine Ratio Glucose Calculated Osmolality Calcium Corrected Calcium Phosphorus Magnesium Total Bilirubin AST ALT Alkaline Phosphatase Total Protein Albumin Globulin Albumin/Globulin Ratio Misc Test Result Cancelled Cancelled Cancelled 02/29/24 02/29/24 05:21 05:21 WBC RBC Hgb Hct MCV MCH MCHC RDW Std Deviation Plt Count Neut % (Auto) Lymph % (Auto) [place] % (Auto) Eos % (Auto) Baso % (Auto) Neut # (Auto) Lymph # (Auto) [place] # (Auto) Eos # (Auto) Baso # (Auto) Immature Gran # (Auto) Absolute Nucleated RBC Immature Gran % Nucleated RBC % APTT Sodium Potassium Chloride Carbon Dioxide Anion Gap BUN Creatinine Estim Creat Clear Calc eGFR BUN/Creatinine Ratio Glucose Calculated Osmolality Calcium Corrected Calcium Phosphorus Magnesium Total Bilirubin AST ALT Alkaline Phosphatase Total Protein Albumin Globulin Albumin/Globulin Ratio Misc Test Result Cancelled Cancelled ABG Interpretation ABG results: 02/26/24 12:50 ABG pH 7.39 ABG pCO2 42 ABG pO2 124 H ABG HCO3 25 ABG O2 Saturation 99 H ABG Base Excess 0 Quality Measures Quality Measures VTE therapy (Heparin drip) Assessment & Plan Assessment Current Active Medications: Generic Name Dose Route Start Last Admin Trade Name Freq PRN Reason Stop Dose Admin Acetaminophen 650 mg 02/26/24 13:31 Acetaminophen 325 Mg Tablet PO 03/27/24 13:30 Q6H PRN Fever >101.5 Acetaminophen 650 mg 02/26/24 13:31 Acetaminophen 325 Mg Tablet PO 03/27/24 13:30 Q6H PRN PAIN SCALE 1-3 (mild Hydrocodone Bitart/Acetaminophen 1 tab 02/26/24 13:36 02/27/24 13:16 Hydrocodone/Apap 5/325 Tablet PO 03/02/24 13:35 1 tab Q4HR PRN Administration Pain Scale 4-10 Atorvastatin Calcium 40 mg 02/27/24 21:00 02/28/24 20:22 Atorvastatin Calcium 20 Mg Tablet PO 03/28/24 20:59 40 mg HS ESTHER Administration Carvedilol 3.125 mg 02/27/24 17:30 02/29/24 07:59 Carvedilol 3.125 Mg Tablet PO 03/28/24 17:29 3.125 mg BIDWM ESTHER Administration Dextrose 25 ml 02/26/24 13:36 Dextrose 50%-Water Inj 50 Ml Syringe IV 03/27/24 13:35 Q15MIN PRN BG 50-70 responsive npo pt Dextrose 50 ml 02/26/24 13:36 Dextrose 50%-Water Inj 50 Ml Syringe IV 03/27/24 13:35 Q15MIN PRN BG <50 OR BG <70 & pt unresponsive Diphenhydramine HCl 25 mg 02/28/24 12:56 Diphenhydramine 25 Mg Capsule PO 03/29/24 12:55 Q6HR PRN Itching or hives Folic Acid 1 mg 02/26/24 21:00 02/29/24 07:59 Folic Acid 1 Mg Tablet PO 03/02/24 20:59 1 mg BID ESTHER Administration Furosemide 40 mg 02/28/24 09:00 02/29/24 08:00 Furosemide Inj 10 Mg/Ml 4ml Vial IVP 03/29/24 08:59 40 mg QDAY ESTHER Administration Glucagon 1 mg 02/26/24 13:36 Glucagon Inj 1 Mg Vial IM Q15MIN PRN BG <70, and no IV access Heparin Sodium/Dextrose 25,000 unit in 250 mls @ 16.835 mls/hr 02/27/24 14:45 02/28/24 21:00 Heparin In D5w Ivpb IV 03/12/24 14:44 18 units/kg/hr .[id number] ESTHER 16.835 mls/hr Administration Protocol 18 UNITS/KG/HR Insulin Human Lispro 0 unit 02/26/24 17:00 02/29/24 08:00 Insulin Lispro (Admelog) 1 Unit/0.01 Ml Unit SC 03/27/24 16:59 1 unit AC ESTHER Administration Protocol Lorazepam 0.5 mg 02/26/24 15:59 Lorazepam 0.5 Mg Tablet PO 03/02/24 15:58 Q4HR PRN CIWA Score 2-6 Lorazepam 1 mg 02/26/24 15:59 Lorazepam 0.5 Mg Tablet PO 03/02/24 15:58 Q4HR PRN CIWA SCORE 7-11 Lorazepam 2 mg 02/26/24 15:59 Lorazepam 0.5 Mg Tablet PO 03/02/24 15:58 Q4HR PRN CIWA SCORE 12-15 Losartan Potassium 25 mg 02/29/24 09:00 02/29/24 07:59 Losartan Potassium 25 Mg Tablet PO 03/27/24 13:44 25 mg QDAY ESTHER Administration Nicotine 7 mg 02/26/24 16:00 02/29/24 08:01 Nicotine Patch 7 Mg/24 Hr Patch.Td24 TOP 03/27/24 15:59 Not Given QDAY ESTHER Pantoprazole Sodium 40 mg 02/27/24 12:00 02/29/24 07:59 Pantoprazole 40 Mg Tablet PO 03/28/24 11:59 40 mg QDAY ESTHER Administration Sennosides 2 tab 02/26/24 13:31 Senna Tablet PO 03/27/24 13:30 BID PRN CONSTIPATION Protocol Thiamine HCl 100 mg 02/26/24 21:00 02/29/24 07:59 Thiamine 100 Mg Tablet PO 03/02/24 20:59 100 mg BID ESTHER Administration Plan This patient is a 48-year-old male with past medical history of essential hypertension, NIDDM type II presented with worsening shortness of breath, orthopnea, PND, cough and bilateral lower extremity swelling x 2 weeks. Doppler ultrasound lower extremities was significant for acute nonocclusive deep vein thrombus involving bilateral posterior tibial veins and chest x-ray showed vascular congestion. He was admitted for likely new onset heart failure and B/L lower extremity DVT. 1. Acute respiratory failure with hypoxia?resolved Secondary to 2. Likely new onset heart failure exacerbation Patient presented with worsening SOB as well as orthopnea and PND for 2-week duration. Patient stated he could not take more than 5 steps without feeling SOB On exam patient has significant lower extremity edema as well as crackles heard at lung bases. Chest x-ray was significant for cardiomegaly, B/L vascular congestion and pulmonary edema. EKG showed sinus tachycardia, rate 106 with prolonged QTc 550 BNP was elevated at 556 and troponin was negative x 3 NYHA class III stage C Patient did not have a diagnosis of heart failure before and was not on any diuretics at home. Discontinued dapagliflozin as patient developed allergic reaction. Patient on diuresis with Lasix 40 Mg IV once daily BUN decreased to 16 from 21 and Cr decreased to 0.9 from 1.1 Over the past 24 hours patient had a fluid balance of - 2921 cc On admission patient's weight was 98 kg which decreased to 90.86 kg today Plan: ? 2G sodium restricted diet ? 1500 cc/day fluid restriction ? Daily weight ? Strict input output charting - Pending transthoracic echocardiogram ? Decreased diuresis to Lasix 40 Mg po daily from Lasix 40 Mg IV daily as per cardiology recommendations ? Continue losartan 25 Mg p.o. daily as part of GDMT ? Continue on carvedilol 3.125 Mg p.o. twice daily as part of GDMT as patient's acute exacerbation is now resolving. ? Cardiology, Dr. Jordan consulted. Appreciate recommendation 3. B/L lower extremity DVT Patient endorses lower extremity swelling over the past 2 weeks. 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 Venous duplex lower extremity completed on 02/16/2024 findings include: Positive for acute nonocclusive deep vein thrombus involving the bilateral posterior tibial veins Patient had unexplained B/L DVTs we will pursue further hypercoagulable workup Plan: ? Pending Hypercoagulable workup including: Activated protein C, prothrombin gene mutation, protein C&S, Antithrombin, factor V Leiden, anticardiolipin antibodies, anti- beta-2 glycoprotein I antibodies, Lupus anticoagulant ? Continue heparin infusion - To transition to apixaban after echocardiogram and once no procedures anticipated by cardiology 4. JOSE DE JESUS - resolving On admission patient's BUN and CR 24 and 1.1. BUN decreased to 16 from 21 and Cr decreased to 0.9 from 1.1 Plan: ? Continue IV diuresis ? Avoid nephrotoxic agents 5. Essential hypertension 6. Hypertensive urgency?resolved On admission patient's BP 156/121, currently BP 112/90 Patient received metoprolol tartrate 50 Mg x 1 and clonidine 0.2 Mg x 1 in the ED. Patient was not on any home medication. Plan: ? Continue losartan 25 Mg p.o. daily 7. NIDDM type II [6.6] Patient previously controlled on diet and metformin, however he stopped taking metformin since 2019. On this admission HbA1c 6.6% Plan: ? Insulin sliding scale to cover for any glucose spikes. 8. Hyperlipidemia On admission lipid panel significant for cholesterol 141, LDL 79, HDL 54 2012 ASCVD : 9.3%; high intensity statin recommended because of diabetes and 10- year risk of >7.5%. Plan: ? Started on atorvastatin 40 Mg p.o. at bedtime 9. Chronic venous insufficiency On admission patient had B/L lower extremity swelling along with hyperpigmentation along his shins consistent with hemosiderin deposits from chronic venous stasis. Patient states that for >5 years he was diagnosed with varicose veins but was noncompliant with stockings and follow-up. 10. Transaminitis?resolving On admission AST 55 and ALT 120. Which currently down trended to AST 31 and ALT 82 which likely suggests hepatic congestion from heart failure exacerbation. Plan: ? Continue to monitor on CMP 11. Alcohol use Patient states he drinks 1?2 beers per day with the last drink being 2 days prior to admission. Plan: ? Continue folic acid 1 Mg p.o. twice daily and thiamine 100 Mg p.o. twice daily. ? CIWA protocol 12. Nicotine dependence Patient states he smokes 2-3 cigarettes/week with approximately 10 pack years. Will monitor for now before starting patient on NRT along with varenicline while in hospital. 13. History of methamphetamine and cocaine use Patient states that for about 5 years in his 20s he has really used methamphetamine and cocaine. This may be a risk factor for his new onset congestive heart failure. 14. Leukocytosis- resolving WBC 18.5 ---> 13 Etiology likely secondary to hemoconcentration after diuresis. 15. Polycythemia Patient's Hb 17.6 and HCT 52.1 Most likely secondary to overdiuresis Plan: ? Will decrease Lasix dose and continue to monitor Hb on CBC. ? EPO levels and JAK2 mutation ordered Health maintenance: Disposition: PO diuresis. Heparin infusion for DVT. Pending echocardiogram Diet: Cardiac Lines: pIVs GI Prophylaxis: Pantoprazole Thrombo Prophylaxis: On heparin infusion for DVT Code status: FULL CODE Plan of care discussed with Attending Dr. Alberto and PGY2 Dr. Dolly Pierce MD PGY 1 Attending Provider Attestation/Addendum Alba Sr DO, attest that I was physically present for the byrne portions of the service and evaluated the patient with the resident and I reviewed and discussed the case with the resident and agree with the resident's findings and plans of care as documented above Patient seen and evaluated this AM. He reports feeling much improved today. Echo pending. B/l LE edema resolved and currently on room air. Patient denies any chest pain, lightheadedness or shortness of breath. Will f/u with echo results and cardiology recommendations. Anticipate DC within next 24hrs.
--- NOTE | 2024-02-29 10:00 | ESPR_ITS ---
Documentation for date of: 02/29/24 Subjective Subjective Interval history: Patient seen at bedside this morning. No overnight events. Patient had a total balance of -2921 ml in past 24 hours. Okay to transition to P.O. Lasix 40mg q day at discharge. Potassium 4.3 and magnesium 2.0, keep above 4 and 2 respectively to avoid any arrhythmias. Will follow up on echo. Exam Vital Signs Temp Pulse Resp BP Pulse Ox O2 Del Method O2 Flow Rate 97.0 F 88 17 134/82 H 95 Room Air 2 02/29/24 08:00 02/29/24 08:00 02/29/24 08:00 02/29/24 08:00 02/29/24 08:00 02/29/24 08:00 02/28/24 08:52 Narrative Exam General: A/O x3, no acute distress, well-nourished, well-developed Eyes: PERRL, EOMI. Anicteric, vision grossly intact. Ears: No ear pain, no ear discharge, Hearing grossly intact. Nose: No nasal discharge. Mouth/Throat: Dry mucous membranes, no redness, no lesions. Neck: Neck supple, non-tender, no cervical lymphadenopathy. Lungs: Clear DAVIDSON to auscultation and percussion, No accessory muscle use. Cardio: Normal S1/S2, regular rhythm, no murmurs, no JVD Abdomen: Soft, non-tender, no palpable masses, peristalsis present, no guarding or rebound. Extremities: Symmetrical, no significant deformities, 1+ peripheral edema , non-tender, peripheral pulses presents. Skin: No rashes, no lesions, warm to touch. Neuro: No focal neurological deficits. motor and sensory intact Psych: Cooperative, appropriate mood and effect. Objective Labs 02/29/24 05:21 02/29/24 05:21 Labs: Laboratory Results - last 24 hr 02/29/24 02/29/24 02/29/24 05:21 05:21 05:21 WBC 13.0 H RBC 5.77 Hgb 17.6 H* Hct 52.1 MCV 90 MCH 30.5 MCHC 33.8 RDW Std Deviation 43.6 Plt Count 185 Neut % (Auto) 75 Lymph % (Auto) 13 [place] % (Auto) 10 Eos % (Auto) 1 Baso % (Auto) 0 Neut # (Auto) 9.8 H Lymph # (Auto) 1.7 [place] # (Auto) 1.3 H Eos # (Auto) 0.1 Baso # (Auto) 0.0 Immature Gran # (Auto) 0.08 H Absolute Nucleated RBC 0.00 Immature Gran % 1 H Nucleated RBC % 0 APTT 71.7 H Sodium 140 Potassium 4.3 D Chloride 106 Carbon Dioxide 24.5 Anion Gap 10 BUN 16 Creatinine 0.9 Estim Creat Clear Calc 118.3 eGFR > 60 BUN/Creatinine Ratio 18 Glucose 122 H Calculated Osmolality 281 Calcium 9.6 Corrected Calcium 9.6 Phosphorus 3.0 Magnesium 2.2 Total Bilirubin 1.0 AST 37 H ALT 66 H Alkaline Phosphatase 85 Total Protein 7.1 Albumin 4.0 Globulin 3.1 Albumin/Globulin Ratio 1.3 Misc Test Result Cancelled Cancelled Cancelled 02/29/24 02/29/24 02/29/24 05:21 05:21 05:21 WBC RBC Hgb Hct MCV MCH MCHC RDW Std Deviation Plt Count Neut % (Auto) Lymph % (Auto) [place] % (Auto) Eos % (Auto) Baso % (Auto) Neut # (Auto) Lymph # (Auto) [place] # (Auto) Eos # (Auto) Baso # (Auto) Immature Gran # (Auto) Absolute Nucleated RBC Immature Gran % Nucleated RBC % APTT Sodium Potassium Chloride Carbon Dioxide Anion Gap BUN Creatinine Estim Creat Clear Calc eGFR BUN/Creatinine Ratio Glucose Calculated Osmolality Calcium Corrected Calcium Phosphorus Magnesium Total Bilirubin AST ALT Alkaline Phosphatase Total Protein Albumin Globulin Albumin/Globulin Ratio Misc Test Result Cancelled Cancelled Cancelled 02/29/24 02/29/24 05:21 05:21 WBC RBC Hgb Hct MCV MCH MCHC RDW Std Deviation Plt Count Neut % (Auto) Lymph % (Auto) [place] % (Auto) Eos % (Auto) Baso % (Auto) Neut # (Auto) Lymph # (Auto) [place] # (Auto) Eos # (Auto) Baso # (Auto) Immature Gran # (Auto) Absolute Nucleated RBC Immature Gran % Nucleated RBC % APTT Sodium Potassium Chloride Carbon Dioxide Anion Gap BUN Creatinine Estim Creat Clear Calc eGFR BUN/Creatinine Ratio Glucose Calculated Osmolality Calcium Corrected Calcium Phosphorus Magnesium Total Bilirubin AST ALT Alkaline Phosphatase Total Protein Albumin Globulin Albumin/Globulin Ratio Misc Test Result Cancelled Cancelled ABG Interpretation ABG results: 02/26/24 12:50 ABG pH 7.39 ABG pCO2 42 ABG pO2 124 H ABG HCO3 25 ABG O2 Saturation 99 H ABG Base Excess 0 Quality Measures Quality Measures VTE therapy (Heparin drip) Assessment & Plan Assessment Current Active Medications: Generic Name Dose Route Start Last Admin Trade Name Freq PRN Reason Stop Dose Admin Acetaminophen 650 mg 02/26/24 13:31 Acetaminophen 325 Mg Tablet PO 03/27/24 13:30 Q6H PRN Fever >101.5 Acetaminophen 650 mg 02/26/24 13:31 Acetaminophen 325 Mg Tablet PO 03/27/24 13:30 Q6H PRN PAIN SCALE 1-3 (mild Hydrocodone Bitart/Acetaminophen 1 tab 02/26/24 13:36 02/27/24 13:16 Hydrocodone/Apap 5/325 Tablet PO 03/02/24 13:35 1 tab Q4HR PRN Administration Pain Scale 4-10 Atorvastatin Calcium 40 mg 02/27/24 21:00 02/28/24 20:22 Atorvastatin Calcium 20 Mg Tablet PO 03/28/24 20:59 40 mg HS ESTHER Administration Carvedilol 3.125 mg 02/27/24 17:30 02/29/24 07:59 Carvedilol 3.125 Mg Tablet PO 03/28/24 17:29 3.125 mg BIDWM ESTHER Administration Dextrose 25 ml 02/26/24 13:36 Dextrose 50%-Water Inj 50 Ml Syringe IV 03/27/24 13:35 Q15MIN PRN BG 50-70 responsive npo pt Dextrose 50 ml 02/26/24 13:36 Dextrose 50%-Water Inj 50 Ml Syringe IV 03/27/24 13:35 Q15MIN PRN BG <50 OR BG <70 & pt unresponsive Diphenhydramine HCl 25 mg 02/28/24 12:56 Diphenhydramine 25 Mg Capsule PO 03/29/24 12:55 Q6HR PRN Itching or hives Folic Acid 1 mg 02/26/24 21:00 02/29/24 07:59 Folic Acid 1 Mg Tablet PO 03/02/24 20:59 1 mg BID ESTHER Administration Furosemide 40 mg 02/28/24 09:00 02/29/24 08:00 Furosemide Inj 10 Mg/Ml 4ml Vial IVP 03/29/24 08:59 40 mg QDAY ESTHER Administration Glucagon 1 mg 02/26/24 13:36 Glucagon Inj 1 Mg Vial IM Q15MIN PRN BG <70, and no IV access Heparin Sodium/Dextrose 25,000 unit in 250 mls @ 16.835 mls/hr 02/27/24 14:45 02/28/24 21:00 Heparin In D5w Ivpb IV 03/12/24 14:44 18 units/kg/hr .[id number] ESTHER 16.835 mls/hr Administration Protocol 18 UNITS/KG/HR Insulin Human Lispro 0 unit 02/26/24 17:00 02/29/24 08:00 Insulin Lispro (Admelog) 1 Unit/0.01 Ml Unit SC 03/27/24 16:59 1 unit AC ESTHER Administration Protocol Lorazepam 0.5 mg 02/26/24 15:59 Lorazepam 0.5 Mg Tablet PO 03/02/24 15:58 Q4HR PRN CIWA Score 2-6 Lorazepam 1 mg 02/26/24 15:59 Lorazepam 0.5 Mg Tablet PO 03/02/24 15:58 Q4HR PRN CIWA SCORE 7-11 Lorazepam 2 mg 02/26/24 15:59 Lorazepam 0.5 Mg Tablet PO 03/02/24 15:58 Q4HR PRN CIWA SCORE 12-15 Losartan Potassium 25 mg 02/29/24 09:00 02/29/24 07:59 Losartan Potassium 25 Mg Tablet PO 03/27/24 13:44 25 mg QDAY ESTHER Administration Nicotine 7 mg 02/26/24 16:00 02/29/24 08:01 Nicotine Patch 7 Mg/24 Hr Patch.Td24 TOP 03/27/24 15:59 Not Given QDAY ESTHER Pantoprazole Sodium 40 mg 02/27/24 12:00 02/29/24 07:59 Pantoprazole 40 Mg Tablet PO 03/28/24 11:59 40 mg QDAY ESTHER Administration Sennosides 2 tab 02/26/24 13:31 Senna Tablet PO 03/27/24 13:30 BID PRN CONSTIPATION Protocol Thiamine HCl 100 mg 02/26/24 21:00 02/29/24 07:59 Thiamine 100 Mg Tablet PO 03/02/24 20:59 100 mg BID ESTHER Administration Plan 48-year-old male with past medical history of hypertension, DM2, past cocaine and meth use, and medical noncompliance was admitted to the hospital on 02/16/2024 acute decompensated heart failure, new onset, hypertensive urgency, and bilateral DVT of tibial veins. 1. Acute decompensated heart failure, new onset 2. Hypertensive urgency ?Patient has been having shortness of breath accompanied with lower extremity swelling as of recently. ?Patient's blood pressure on admission was 156/121 ? Initial BNP was 556 ?Chest x-ray showed CHF Plan: ?Will follow-up on echo ordered ?Can continue with Lasix 40 mg P.O. daily and carvedilol 3.125 twice daily for now ? Strict ROBINSON's ? Daily weights ? Low-sodium diet ? Fluid restrictions ?Recommend to keep potassium magnesium above 4 and 2 respectively to avoid any further arrhythmias 3. Bilateral lower extremity DVT ? Venous Doppler that showed bilateral lower extremity nonocclusive deep vein thrombosis involving the posterior tibial veins ?Patient is on heparin drip ?Recommend hypercoagulability workup ? Continue current management as per primary care team. - Unclear etiology of this bilateral leg DVT and will need to rule out any hypercoagulable state. Can perform factor V Leyden along with prothrombin gene mutation and Antithrombin III levels for now can hold off on rest of hypercoagulable workup for another 8 weeks. Will also need to rule out malignancy. Patient reports weight gain rather than weight loss and no family history of DVT. Recommend to continue with heparin drip if no further procedures are planned and then eventually has to be changed to Eliquis as per the DVT protocol. Patient recommended to definitely follow-up with primary care doctors as well as cardiology. 4. DM2 ? A1c was 6.6 on admission ? Continue current management as per primary care team 5. Alcohol use disorder 6. Past meth and cocaine use ?On CIWA protocol ? Continue current management as per primary care team Continue rest of management as per primary team. We are grateful to be able to participate in Mr. Junior's care. Thank you for the consult Plan of care discussed with attending Risk Control Field Representative, Dr Julian Jin MD PGY-1 Attending Provider Attestation/Addendum I have personally seen and examined the patient separately on the above date of service and discussed the plan of care with the resident. I reviewed the resident Dr. Bryant consultation progress note and agree with the resident findings and plan in the note above and have also edited the documentation to reflect my findings and plan. Miguel Jordan M.D. Interventional Cardiology
[2024-02-29] MEDS: Heparin/D5w 25K 250 ML Ivpb 25,000 UNIT/250 ML BAG 16.835 UNIT IV (11:30)
[2024-02-29] MEDS: ATORVASTATIN CALCIUM 20 MG TABLET 40 MG PO (21:44)
[2024-03-01] VITALS (9 sets, daily range): BP systolic 115–136; BP diastolic 63–106; PULSE 79–96; RESP 15–97; TEMP 35.9–36.3; O2SAT 95–98; BMI 27.3; BMI 27.4
[2024-03-01] MEDS: Heparin/D5w 25K 250 ML Ivpb 25,000 UNIT/250 ML BAG 16.835 UNIT IV (04:54)
[2024-03-01 05:40] LABS: Basophils # (Auto) 0.1 Thou/mm3 (0.0-0.2); Basophils % (Auto) 0 % (0-2.5); Eosinophils # (Auto) 0.1 Thou/mm3 (0.0-0.5); Eosinophils % (Auto) 1 % (0-10); Hematocrit 53.1 % (41.0-53.0); Hemoglobin 18.5 g/dL (13.5-16.0); Immature Granulocytes % (Auto) 1 % (0-0); Immature Granulocytes Auto 0.13 Thou/mm3 (0.00-0.00); Lymphocytes # (Auto) 2.1 Thou/mm3 (1.0-4.8); Lymphocytes % (Auto) 18 % (10-50); Mean Corpuscular HGB Conc 34.8 g/dl (31.0-37.0); Mean Corpuscular Hemoglobin 30.6 pg (25.0-35.0); Mean Corpuscular Volume 88 fL (80-100); Monocytes # (Auto) 1.1 Thou/mm3 (0.0-0.8); Monocytes % (Auto) 10 % (0-12); Neutrophils # (Auto) 7.9 Thou/mm3 (1.8-7.7); Neutrophils % (Auto) 69 % (37-80); Nucleated Red Blood Cell % 0 /100 WBC (0); Platelet Count 207 Thou/mm3 (140-440); RDW Standard Deviation 42.2 fL (35.1-43.9); Red Blood Count 6.05 Miln/mm3 (4.50-5.90); White Blood Count 11.3 Thou/mm3 (3.8-10.6)
[2024-03-01 05:48] LABS: Misc Send Out* See Sep Rpt
[2024-03-01 06:18] LABS: Partial Thromboplastin Time 77.2 Seconds (22.0-36.0)
[2024-03-01 06:35] LABS: Alanine Aminotransferase 84 U/L (10-49); Albumin, Serum 4.3 gm/dL (3.5-5.0); Albumin/Globulin Ratio 1.3 (1.2-2.2); Alkaline Phosphatase 88 U/L (46-116); Anion Gap 8 (7-16); Aspartate Amino Transferase 51 U/L (0-34); BUN/Creatinine Ratio 14 Ratio (12-20); Bilirubin,Total 1.2 mg/dL (0.3-1.2); Blood Urea Nitrogen 14 mg/dL (9-23); Calcium 9.4 mg/dL (8.3-10.6); Calcium (Corrected) 9.4 mg/dL (8.5-10.1); Chloride 101 mMol/L (98-107); Estimated Creatinine Clearance 98.3 mL/min (>60); Globulin 3.2 gm/dL (2.3-3.5); Glucose 128 mg/dL (74-106); Magnesium 2.3 mg/dL (1.6-2.6); Osmolality,Calculated 276 (275-295); Potassium 3.8 mMol/L (3.4-5.1); Sodium 137 mMol/L (136-145); Total Protein 7.5 gm/dL (5.7-8.2); eGFR > 60 See Note
[2024-03-01] MEDS: INSULIN LISPRO (AdmeLOG) 1 UNIT/0.01 ML UNIT SC ×2 (07:38→11:43)
[2024-03-01] MEDS: FOLIC ACID 1 MG TABLET PO (08:12)
[2024-03-01] MEDS: THIAMINE 100 MG TABLET PO (08:12)
[2024-03-01] MEDS: carVEDILOL 3.125 MG TABLET PO (08:12)
[2024-03-01] MEDS: PANTOPRAZOLE 40 MG TABLET PO (08:13)
[2024-03-01] MEDS: Furosemide 40 MG TABLET PO (08:13)
[2024-03-01] MEDS: LOSARTAN POTASSIUM 25 MG TABLET PO (08:13)
[2024-03-01] MEDS: POTASSIUM CHLORIDE 20 mEq TABCR 40 MEQ PO (09:37)
[2024-03-01 10:34] LABS: Free T4 (Free Thyroxine) 1.28 ng/dL (0.89-1.76)
--- NOTE | 2024-03-01 10:53 | ESPR_ITS ---
Documentation for date of: 03/01/24 Subjective Subjective Interval history: Patient was seen and examined at bedside this AM. No acute exents overnight. Patient tolerating diet, adequate urine output and mentation is at baseline. Patient says he feels hot, diaphoretic and has facial flushing. Denies any chest pain/pressure, SOB or palpitation. Patient on diuresis with Lasix 40 Mg po once daily BUN decreased to 14 from 16 and Cr stable at 0.9 from 1.1 Over the past 24 hours patient had a fluid balance of +1314cc On admission patient's weight was 98 kg which decreased to 88.9 kg today From telemetry review patient's rate in 90s-100s overnight with occasional PAC's K3.8 and Mg 2.3. Repleted with KCL 40meq po x 1. Will maintain K >4 and Mg >2 at all times to prevent any further arrhythmias. Transthoracic echocardiogram completed on 02/26/2024 findings include: Severely reduced left ventricular function with an ejection fraction of 30 to 35% with global hypokinesis. Diastolic dysfunction present but cannot be graded accurately because of PACs. Normal RV size and function. Trace TR and could not measure RVSP appropriately. Trace MR and IVC not well-visualized. Overall suboptimal images. Exam Vital Signs Temp Pulse Resp BP Pulse Ox O2 Del Method O2 Flow Rate 96.9 F 88 16 127/100 H 98 Room Air 2 03/01/24 08:00 03/01/24 08:13 03/01/24 08:00 03/01/24 08:13 03/01/24 08:00 03/01/24 08:00 02/28/24 08:52 Narrative Exam Constitutional Alert, oriented x 3 and comfortable. Young male on RA HEENT Vision grossly intact. Patent nares. Trachea midline Respiratory Chest normal on inspection and clear auscultation bilaterally Cardiovascular S1 and S2 audible, RRR. No murmurs carotid bruit. No gross JVD. Abdominal Soft and non tender to palpation in all quadrants. BS + Genitourinary No bladder tenderness, no flank pain. Normal to palpation Musculoskeletal Extremities tone within normal limits. Trace LE edema up to knees B/L. Hyperpigmentation of shins B/L Neurological CN II - XII grossly intact. Extremity motor and sensation grossly intact. Skin Facial flushing, diaphoresis Psychiatric Patient has good affect, is cooperative Objective Labs 12/18/24 05:22 03/01/24 05:22 Labs: Laboratory Results - last 24 hr 03/01/24 05:22 WBC 11.3 H RBC 6.05 H Hgb 18.5 H* Hct 53.1 H MCV 88 MCH 30.6 MCHC 34.8 RDW Std Deviation 42.2 Plt Count 207 Neut % (Auto) 69 Lymph % (Auto) 18 [place] % (Auto) 10 Eos % (Auto) 1 Baso % (Auto) 0 Neut # (Auto) 7.9 H Lymph # (Auto) 2.1 [place] # (Auto) 1.1 H Eos # (Auto) 0.1 Baso # (Auto) 0.1 Immature Gran # (Auto) 0.13 H Absolute Nucleated RBC 0.00 Immature Gran % 1 H Nucleated RBC % 0 APTT 77.2 H Sodium 137 Potassium 3.8 D Chloride 101 Carbon Dioxide 28.0 Anion Gap 8 BUN 14 Creatinine 1.0 Estim Creat Clear Calc 98.3 eGFR > 60 BUN/Creatinine Ratio 14 Glucose 128 H Calculated Osmolality 276 Calcium 9.4 Corrected Calcium 9.4 Magnesium 2.3 Total Bilirubin 1.2 AST 51 H ALT 84 H Alkaline Phosphatase 88 Total Protein 7.5 Albumin 4.3 Globulin 3.2 Albumin/Globulin Ratio 1.3 Free T4 1.28 Misc Test Result Cancelled ABG Interpretation ABG results: 02/26/24 12:50 ABG pH 7.39 ABG pCO2 42 ABG pO2 124 H ABG HCO3 25 ABG O2 Saturation 99 H ABG Base Excess 0 Quality Measures Quality Measures VTE therapy (Heparin drip) Assessment & Plan Assessment Current Active Medications: Generic Name Dose Route Start Last Admin Trade Name Yojana PRN Reason Stop Dose Admin Acetaminophen 650 mg 02/26/24 13:31 Acetaminophen 325 Mg Tablet PO 03/27/24 13:30 Q6H PRN Fever >101.5 Acetaminophen 650 mg 02/26/24 13:31 Acetaminophen 325 Mg Tablet PO 03/27/24 13:30 Q6H PRN PAIN SCALE 1-3 (mild Hydrocodone Bitart/Acetaminophen 1 tab 02/26/24 13:36 02/27/24 13:16 Hydrocodone/Apap 5/325 Tablet PO 03/02/24 13:35 1 tab Q4HR PRN Administration Pain Scale 4-10 Atorvastatin Calcium 40 mg 02/27/24 21:00 12/17/24 21:44 Atorvastatin Calcium 20 Mg Tablet PO 03/28/24 20:59 40 mg HS ESTHER Administration Carvedilol 3.125 mg 02/27/24 17:30 03/01/24 08:12 Carvedilol 3.125 Mg Tablet PO 03/28/24 17:29 3.125 mg BIDWM ESTHER Administration Dextrose 25 ml 02/26/24 13:36 Dextrose 50%-Water Inj 50 Ml Syringe IV 03/27/24 13:35 Q15MIN PRN BG 50-70 responsive npo pt Dextrose 50 ml 02/26/24 13:36 Dextrose 50%-Water Inj 50 Ml Syringe IV 03/27/24 13:35 Q15MIN PRN BG <50 OR BG <70 & pt unresponsive Diphenhydramine HCl 25 mg 02/28/24 12:56 Diphenhydramine 25 Mg Capsule PO 03/29/24 12:55 Q6HR PRN Itching or hives Furosemide 40 mg 03/01/24 09:00 03/01/24 08:13 Furosemide 40 Mg Tablet PO 03/31/24 08:59 40 mg QDAY ESTHER Administration Glucagon 1 mg 02/26/24 13:36 Glucagon Inj 1 Mg Vial IM Q15MIN PRN BG <70, and no IV access Heparin Sodium/Dextrose 25,000 unit in 250 mls @ 16.835 mls/hr 02/27/24 14:45 03/01/24 04:54 Heparin In D5w Ivpb IV 03/12/24 14:44 18 units/kg/hr .[id number] ESTHER 16.835 mls/hr Administration Protocol 18 UNITS/KG/HR Insulin Human Lispro 0 unit 02/26/24 17:00 03/01/24 07:38 Insulin Lispro (Admelog) 1 Unit/0.01 Ml Unit SC 03/27/24 16:59 1 unit AC ESTHER Administration Protocol Losartan Potassium 25 mg 02/29/24 09:00 03/01/24 08:13 Losartan Potassium 25 Mg Tablet PO 03/27/24 13:44 25 mg QDAY ESTHER Administration Pantoprazole Sodium 40 mg 02/27/24 12:00 03/01/24 08:13 Pantoprazole 40 Mg Tablet PO 03/28/24 11:59 40 mg QDAY ESTHER Administration Sennosides 2 tab 02/26/24 13:31 Senna Tablet PO 03/27/24 13:30 BID PRN CONSTIPATION Protocol Plan This patient is a 48-year-old male with past medical history of essential hypertension, NIDDM type II presented with worsening shortness of breath, orthopnea, PND, cough and bilateral lower extremity swelling x 2 weeks. Doppler ultrasound lower extremities was significant for acute nonocclusive deep vein thrombus involving bilateral posterior tibial veins and chest x-ray showed vascular congestion. He was admitted for likely new onset heart failure and B/L lower extremity DVT. 1. Acute respiratory failure with hypoxia?resolved Secondary to 2. Acute decompensated new onset systolic congestive heart failure exacerbation [30-35%] Patient presented with worsening SOB as well as orthopnea and PND for 2-week duration. Patient stated he could not take more than 5 steps without feeling SOB On exam patient has significant lower extremity edema as well as crackles heard at lung bases. Chest x-ray was significant for cardiomegaly, B/L vascular congestion and pulmonary edema. EKG showed sinus tachycardia, rate 106 with prolonged QTc 550 Patient did not have a diagnosis of heart failure before and was not on any diuretics at home. Discontinued dapagliflozin as patient developed allergic reaction. BNP was elevated at 556 and troponin was negative x 3 NYHA class III stage C Transthoracic echocardiogram completed on 02/26/2024 findings include: Severely reduced left ventricular function with an ejection fraction of 30 to 35% with global hypokinesis. Diastolic dysfunction present but cannot be graded accurately because of PACs. Normal RV size and function. Trace TR and could not measure RVSP appropriately. Trace MR and IVC not well-visualized. Overall suboptimal images. Patient on diuresis with Lasix 40 Mg po once daily Over the past 24 hours patient had a fluid balance of +1314cc On admission patient's weight was 98 kg which decreased to 88.9 kg today From telemetry review patient's rate in 90s-100s overnight with occasional PAC's K3.8 and Mg 2.3. Repleted with KCL 40meq po x 1. Will maintain K >4 and Mg >2 at all times to prevent any further arrhythmias. Plan: ? 2G sodium restricted diet ? 1500 cc/day fluid restriction ? Daily weight ? Strict input output charting ? Continue diuresis with Lasix 40 Mg po daily, may need to decra ? Continue losartan 25 Mg p.o. daily as part of GDMT ? Continue carvedilol 3.125 Mg p.o. twice daily as part of GDMT as patient's acute exacerbation is now resolving. ? Cardiology, Dr. Jordan consulted. Appreciate recommendation 3. B/L lower extremity DVT Patient endorses lower extremity swelling over the past 2 weeks. 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 Venous duplex lower extremity completed on 02/16/2024 findings include: Positive for acute nonocclusive deep vein thrombus involving the bilateral posterior tibial veins Patient had unexplained B/L DVTs we will pursue further hypercoagulable workup Plan: ? Pending Hypercoagulable workup including: Activated protein C, prothrombin gene mutation, protein C&S, Antithrombin, factor V Leiden, anticardiolipin antibodies, anti- beta-2 glycoprotein I antibodies, Lupus anticoagulant ? Continue heparin infusion - To transition to apixaban after echocardiogram and once no procedures anticipated by cardiology 4. JOSE DE JESUS - resolving On admission patient's BUN and CR 24 and 1.1. BUN decreased to 14 from 16 and Cr stable at 0.9 from 1.1 Plan: ? Continue IV diuresis ? Avoid nephrotoxic agents 5. Essential hypertension 6. Hypertensive urgency?resolved On admission patient's BP 156/121, currently BP 112/90 Patient received metoprolol tartrate 50 Mg x 1 and clonidine 0.2 Mg x 1 in the ED. Patient was not on any home medication. Plan: ? Continue losartan 25 Mg p.o. daily 7. NIDDM type II [6.6] Patient previously controlled on diet and metformin, however he stopped taking metformin since 2019. On this admission HbA1c 6.6% Plan: ? Insulin sliding scale to cover for any glucose spikes. 8. Hyperlipidemia On admission lipid panel significant for cholesterol 141, LDL 79, HDL 54 2012 ASCVD : 9.3%; high intensity statin recommended because of diabetes and 10- year risk of >7.5%. Plan: ? Started on atorvastatin 40 Mg p.o. at bedtime 9. Chronic venous insufficiency On admission patient had B/L lower extremity swelling along with hyperpigmentation along his shins consistent with hemosiderin deposits from chronic venous stasis. Patient states that for >5 years he was diagnosed with varicose veins but was noncompliant with stockings and follow-up. 10. Transaminitis?resolving On admission AST 55 and ALT 120. Which currently down trended to AST 31 and ALT 82 which likely suggests hepatic congestion from heart failure exacerbation. Plan: ? Continue to monitor on CMP 11. Alcohol use Patient states he drinks 1?2 beers per day with the last drink being 2 days prior to admission. Patient develped facial flushing and diaphoresis which are known side effects of Thiamine. Will discontinue Plan: ? Discontinued folic acid 1 Mg p.o. twice daily and thiamine 100 Mg p.o. twice daily due to side effects ? Discontinued CIWA protocol 12. Nicotine dependence Patient states he smokes 2-3 cigarettes/week with approximately 10 pack years. Will monitor for now before starting patient on NRT along with varenicline while in hospital. 13. History of methamphetamine and cocaine use Patient states that for about 5 years in his 20s he has really used methamphetamine and cocaine. This may be a risk factor for his new onset congestive heart failure. 14. Leukocytosis- resolving WBC 18.5 ---> 13 Etiology likely secondary to hemoconcentration after diuresis. 15. Polycythemia - worsening Patient's Hb 17.6 and HCT 52.1 ----> Hb18.5 and HCT 53.1 Most likely secondary to overdiuresis Plan: ? Will continue to monitor Hb on CBC. ? Pending EPO levels and JAK2 mutation Health maintenance: Disposition: PO diuresis. Heparin infusion for DVT. Cardiology recommendations Diet: Cardiac Lines: pIVs GI Prophylaxis: Pantoprazole Thrombo Prophylaxis: On heparin infusion for DVT Code status: FULL CODE Plan of care discussed with Attending Dr. Alberto and PGY2 Dr. Dolly Pierce MD PGY 1 Attending Provider Attestation/Addendum Remberto, Alba Alberto, DO, attest that I was physically present for the byrne portions of the service and evaluated the patient with the resident and I reviewed and discussed the case with the resident and agree with the resident's findings and plans of care as documented above Patient seen and evaluated this AM. No acute events overnight. Patient reports feeling improved, b/l LE edema resolved. Stable on room air. Will f/u with cardiology recommendations. Anticipate DC within 24h.
--- NOTE | 2024-03-01 14:20 | PC.SS ---
Rounding: Pending cardio reccs one more day
--- NOTE | 2024-03-01 14:55 | ESDS_ITS ---
<Statement entered by Alba Alberto DO - 03/02/24 07:26> I, Alba Alberto DO, attest that I was physically present for the byrne portions of the service and evaluated the patient with the resident and I reviewed and discussed the case with the resident and agree with the resident's findings and plans of care as documented above <Statement entered by Pedro Alberto MD - 03/01/24 15:19> I saw and examined the patient, and I agree with current management stated by Dr Kari MD,PGY1. Plan of care was discussed with the attending physician and resident physician. Disclaimer: Despite multiple revisions, due to the dictation software being used, the document bellow may not be free of grammatical errors including phonetic/typographic errors. However, this does not deter from our commitment to providing health care in the patient's best interest in mind. Dr. Dolly MD, PGY 2 Planned Discharge Date 03/01/24 DS: Providers Provider Date of admission: 02/26/24 13:31 Primary care physician: Physician No Primary/Family Admitting Provider: Rah Mcintosh MD Attending Provider on Admission: Alba Alberto DO Consults: 02/27/24 10:09 Consult to Cardiology Routine Comment: New onset CHF Consulting Provider: Miguel Jordan Attending Provider on DC: Rambo Pierce MD Discharging Provider: Rambo Pierce MD DS: Diagnosis Problem List Completed Was Problem List Reviewed/Reconciled?: Yes Hospital Course Hospital Course Hospital course: This patient is a 48-year-old male with past medical history of essential hypertension, NIDDM type II presented with worsening shortness of breath, orthopnea, PND, cough and bilateral lower extremity swelling x 2 weeks. Doppler ultrasound lower extremities was significant for acute nonocclusive deep vein thrombus involving bilateral posterior tibial veins and chest x-ray showed vascular congestion. He was admitted for likely new onset heart failure and B/L lower extremity DVT. Patient was formally diagnosed with new onset systolic congestive heart failure EF 30-35%. Transthoracic echocardiogram completed on 02/26/2024 findings include: Severely reduced left ventricular function with an ejection fraction of 30 to 35% with global hypokinesis. Diastolic dysfunction present but cannot be graded accurately because of PACs. Normal RV size and function. Trace TR and could not measure RVSP appropriately. Trace MR and IVC not well-visualized. Overall suboptimal images. During hospitalization patient was diuresed of approximately 10 kg of fluid. Upon admission his weight was 98 kg which decreased to 88.9 kg on discharge. He was treated with Lasix 40 Mg IV twice daily and subsequently weaned to Lasix 40 Mg p.o. daily upon discharge. Patient's acute respiratory failure with hypoxia also resolved and he is now on room air. With regards to his bilateral lower extremity DVT he was treated with heparin infusion and transition to therapeutic dose Eliquis upon discharge. Bleeding risks and fall precautions were discussed with patient with which he verbalized understanding. Hypercoagulable workup including Activated protein C, prothrombin gene mutation, protein C&S, Antithrombin, factor V Leiden, anticardiolipin antibodies, anti- beta-2 glycoprotein I antibodies, Lupus anticoagulant was ordered and will be reviewed in clinic. For his polycythemia, Hb 18.5 and HCT 53.1, this is most likely secondary to diuresis and hemoconcentration. To rule out other causes EPO levels and JAK2 mutation were ordered. All patient's labs are now returning to baseline. Patient is now clinically stable and fit for discharge back to home. Discharge diagnoses: 1. Acute respiratory failure with hypoxia?resolved 2. Acute decompensated new onset systolic congestive heart failure exacerbation [30-35%]?resolved 3. Bilateral lower extremity DVT?chronic 4. JOSE DE JESUS?resolving 5. Essential hypertension 6. Hypertensive urgency?resolved 7. Dji-tylqfne-lgocsekll diabetes mellitus type 2 [6.6] 8. Hyperlipidemia 9. Chronic venous insufficiency 10. Transaminitis?resolving 11. Alcohol use 12. Nicotine dependence 13. History of methamphetamine use 14. History of cocaine use 14. Leukocytosis?resolved 15. Polycythemia Discharge plan: -You have been started on a 'water pill',lasix, for your blood pressure and heart failure. Take 1 tablet once a day. -You have been started on a medicatrion, metoprolol 25mg XL for your heart failure. Take 1 tablet per day. Do not take if your systolic BP is < 100 or HR is less than 60. -You have been started on a medication Entresto for both your blood pressure and heart failure. Take 1 tablet twice a day. Do not take if your systolic BP is < 100. -You have been started on a medication, Metformin for your diabetes. Please take 1 tablet once a day. -You have been started on a blood thinner Eliquis for the blood clots in your legs. Follow the dose instructions on the packet. Take 10mg tablet twice a day for 7 days followed by 5mg tablet twice a day for at least 3 months. Follow up with your primary care doctor for guidance. -Please measure you blood pressure daily, if top number <100 skip that dose of blood pressure medication. -Please follow a 2g per day sodium restricted diet. -Please follow a 1500ml / 50oz a day fluid restriction. -Monitor your weight daily, if you gain more than 5-10 pounds a day please take an extra dose of lasix that day -Please follow up with your primary doctor/[facility] clinic within 1 week of discharge. -Please follow up in Cardiology clinic within 1-2 weeks of discharge -If you experience any new,persistent or worsening of symptoms, please with call your primary doctor or dial 911 or present to the emergency department We are grateful to be able to participate in Mr. Junior's care. We wish him the best. Plan of care discussed with Attending Dr. Alberto and PGY2 Dr. Dolly Pierce MD PGY 1 Time spent discussing smoking cessation with patient: more than 10 minutes (30) Time Spent with Patient Time attestation: Total time spent providing and/or coordinating discharge services: Time spent: Greater than 30 minutes (36) Exam Vital Signs Temp Pulse Resp BP Pulse Ox O2 Del Method O2 Flow Rate 97.3 F 94 15 128/99 H 95 Room Air 2 03/01/24 12:03/01/24 12:03/01/24 12:03/01/24 12:03/01/24 12:03/01/24 12:02/28/24 08:52 Narrative Exam Constitutional Alert, oriented x 3 and comfortable. Young male on RA HEENT Vision grossly intact. Patent nares. Trachea midline Respiratory Chest normal on inspection and clear auscultation bilaterally Cardiovascular S1 and S2 audible, RRR. No murmurs carotid bruit. No gross JVD. Abdominal Soft and non tender to palpation in all quadrants. BS + Genitourinary No bladder tenderness, no flank pain. Normal to palpation Musculoskeletal Extremities tone within normal limits. Trace LE edema up to knees B/L. Hyperpigmentation of shins B/L Neurological CN II - XII grossly intact. Extremity motor and sensation grossly intact. Skin Facial flushing, diaphoresis Psychiatric Patient has good affect, is cooperative Discharge Plan Plan Patient Disposition: HOME (Self Care) Patient condition on transfer: Stable Care Plan Goals: -You have been started on a 'water pill',lasix, for your blood pressure and heart failure. Take 1 tablet once a day. -You have been started on a medicatrion, metoprolol 25mg XL for your heart failure. Take 1 tablet per day. Do not take if your systolic BP is < 100 or HR is less than 60. -You have been started on a medication Entresto for both your blood pressure and heart failure. Take 1 tablet twice a day. Do not take if your systolic BP is < 100. -You have been started on a medication, Metformin for your diabetes. Please take 1 tablet once a day. -You have been started on a blood thinner Eliquis for the blood clots in your legs. Follow the dose instructions on the packet. Take 10mg tablet twice a day for 7 days followed by 5mg tablet twice a day for at least 3 months. Follow up with your primary care doctor for guidance. -Please measure you blood pressure daily, if top number <100 skip that dose of blood pressure medication. -Please follow a 2g per day sodium restricted diet. -Please follow a 1500ml / 50oz a day fluid restriction. -Monitor your weight daily, if you gain more than 5-10 pounds a day please take an extra dose of lasix that day -Please follow up with your primary doctor/[facility] clinic within 1 week of discharge. -Please follow up in Cardiology clinic within 1-2 weeks of discharge -If you experience any new,persistent or worsening of symptoms, please with call your primary doctor or dial 911 or present to the emergency department Prescriptions/Referrals Prescriptions/Med Rec: New metformin 500 mg tablet extended release 24 hr 500 mg PO QDAY Qty: 30 0RF atorvastatin 40 mg tablet 40 mg PO HS 30 Days Qty: 30 0RF furosemide 40 mg Tablet 40 mg PO QDAY 30 Days Qty: 30 0RF Eliquis DVT-PE Treat 30D Start 5 mg (74 tabs) tablets,dose pack 5 mg PO BID Qty: 74 0RF (DME) Blood Pressure Cuff Misc See Rx Instructions .Route Qty: 1 0RF Rx Instructions: As directed sacubitril-valsartan [Entresto] 24-26 mg tablet 1 tab PO BID Qty: 30 0RF metoprolol succinate 25 mg tablet extended release 24 hr 25 mg PO QDAY Qty: 30 0RF Referrals: Miguel Jordan MD [Physician] - No Primary/Family,Physician [Primary Care Provider] - Rambo Pierce MD [Resident] - Outpatient Orders (i.e. Home Health, Labs, Imaging): Basic Metabolic Panel (Routine) Timeframe: 20240303 Location: Determined by Patient Ordered By: Rambo Pierce CBC (Routine) Timeframe: 20240303 Location: Determined by Patient Ordered By: Rabmo Pierce Patient/Caregiver Discharge Instructions Education Materials: Heart Failure Dc, DVT Dc Print Language: Scottish Stand Alone Forms: Erica Award Info., Patient Portal Info Letter Discharge Order Discharge Orders: Discharge (Routine); Ordered 03/01/24 Ordered By: Sahara Berkowitz Quality Discharge Quality Measures VTE prophylaxis
--- NOTE | 2024-03-01 14:55 | PC.NURSE ---
Heparin drip discontinued per MD order.
[2024-03-01] MEDS: APIXABAN 2.5 MG TABLET 10 MG PO (15:44)
[2024-03-02 13:59] LABS: PTT-LA Screen 92 seconds (< OR = 40); Protein C Activity* 95 % normal (70-180)
[2024-03-02 14:00] LABS: Hexagonal Phase Confirm NEGATIVE (NEGATIVE); dRVVT Screen 30 seconds (< OR = 45)
[2024-03-03 13:40] LABS: Antithrombin III, Activity 76 % normal (80-135); Antithrombin III, Antigen 79 % normal (80-120); Protein S Activity* 67 % normal (70-150)
[2024-03-06 06:55] LABS: Erythropoietin (EPO)* 6.8 mIU/mL (2.6-18.5)
[2024-03-07 13:52] LABS: Cardiolipin Ab (IgA) <2.0 APL-U/mL; Cardiolipin Ab (IgG) <2.0 GPL-U/mL
[2024-03-09 06:35] LABS: Cardiolipin Ab (IgM) <2.0 MPL-U/mL
[2024-03-16 09:11] LABS: Factor V Leiden Mutation NEGATIVE; Protein C Antigen, Total* 89 % normal (70-140); Prothrombin Fac II Mutation NEGATIVE
== END 2024-03-01 16:32 | disposition home or self-care (01) | DRG 291 ==
LOC: SERX 12:32 → SERHOLD 13:51 → S2NX 20:42
PROVIDERS: Internal Medicine; Physician Assistant; Student in an Organized Health Care Education/Training Program; Admitting Provider Student in an Organized Health Care Education/Training Program; Emergency Provider Emergency Medicine; Visit Provider Internal Medicine
DX: I11.0 Hypertensive heart disease with heart failure (principal); I50.23 Acute on chronic systolic (congestive) heart failure; I82.443 Acute embolism and thrombosis of tibial vein, bilateral; E11.9 Type 2 diabetes mellitus without complications; I16.0 Hypertensive urgency; K76.1 Chronic passive congestion of liver; F17.210 Nicotine dependence, cigarettes, uncomplicated; E66.9 Obesity, unspecified; Z68.30 Body mass index [BMI] 30.0-30.9, adult; J44.9 Chronic obstructive pulmonary disease, unspecified; E78.5 Hyperlipidemia, unspecified; I87.2 Venous insufficiency (chronic) (peripheral); F10.90 Alcohol use, unspecified, uncomplicated; Z79.84 Long term (current) use of oral hypoglycemic drugs; D75.1 Secondary polycythemia; D72.829 Elevated white blood cell count, unspecified; F15.90 Other stimulant use, unspecified, uncomplicated; F14.90 Cocaine use, unspecified, uncomplicated
CPT/HCPCS: 36415; 36600; 71045; 71275; 80053; 80061; 81001; 81219; 81240; 81241; 81270; 81279; 81339; 82668; 82803; 83036; 83735; 83880; 84100; 84439; 84443; 84484; 85025; 85300; 85301; 85302; 85303; 85306; 85379; 85598; 85610; 85613; 85730; 86146; 86147; 87811; 93005; 93306; 93970; 94640; 96372; 96374; 96375; 96376; 99285; A4649; A9270; J1643; J1644; J1650; J1815; J1940; J2270; J2919; J8499; Q9967

== ENCOUNTER 2024-03-13 15:23 | Emergency (ER) | payer BC, SELFPAY ==
[2024-03-13 15:25] VITALS: BMI 26.8
--- NOTE | 2024-03-13 15:27 | EKG_ITS ---
[facility] Test Date: 2024-03-13 Pat Name: JOSE BAIRES Department: Room: - Gender: Male Financial Aids Officer: : 1975 Requested By: ED Temporary Provider Order Number: [id number] Reading MD: ED Temporary Provider Measurements Intervals [place] Rate: 72 P: 30 AL: 181 QRS: 12 QRSD: 106 T: 0 QT: 405 QTc: 444 Interpretive Statements SINUS RHYTHM POSSIBLE LEFT ATRIAL ENLARGEMENT [-0.1mV P WAVE IN V1/V2] MODERATE T-WAVE ABNORMALITY, CONSIDER ANTEROLATERAL ISCHEMIA [-0.1+ mV T WAVE IN V3-V6] Compared to ECG 02/26/2024 09:33:10 Possible ischemia now present Sinus tachycardia no longer present Left-axis deviation no longer present T-wave abnormality still present /store/S0/[id number]/ecg/[id number].pdf
[2024-03-13 15:39] VITALS: BP 114/75; PULSE 74; RESP 18; TEMP 37.1; O2SAT 98
--- NOTE | 2024-03-13 15:48 | XR_ITS ---
Examination: PA lateral chest 2 views Technique: Upright PA lateral chest 2 views Exam date and time: March 13, 2024 1602 hrs. Comparison February 26, 2024 Indications: Onset chest pain today Findings: No significant cardiac enlargement Mild vascular congestion No lobar pneumonia or kori pulmonary edema Impression: Mild vascular congestion No lobar pneumonia or kori pulmonary edema
--- NOTE | 2024-03-13 15:48 | PD.EDRME ---
Rapid Medical Screening Exam RME Arrival date/time: 03/13/24 15:23 48-year-old male presents to emergency department complaints of chest pressure patient reports history of CHF Chief Complaint: Chest Pain Vital signs: Vital Signs Temperature 98.8 F 03/13/24 15:39 Pulse Rate 74 03/13/24 15:39 Respiratory Rate 18 03/13/24 15:39 Blood Pressure 114/75 03/13/24 15:39 Pulse Oximetry (%) 98 03/13/24 15:39 Oxygen Delivery Method Room Air 03/13/24 15:39
[2024-03-13 16:08] LABS: Basophils % (Auto) 0 % (0-2.5); Eosinophils # (Auto) 0.1 Thou/mm3 (0.0-0.5); Eosinophils % (Auto) 1 % (0-10); Hematocrit 50.6 % (41.0-53.0); Hemoglobin 17.5 g/dL (13.5-16.0); Immature Granulocytes % (Auto) 1 % (0-0); Immature Granulocytes Auto 0.08 Thou/mm3 (0.00-0.00); Lymphocytes # (Auto) 2.2 Thou/mm3 (1.0-4.8); Lymphocytes % (Auto) 22 % (10-50); Mean Corpuscular HGB Conc 34.6 g/dl (31.0-37.0); Mean Corpuscular Hemoglobin 30.2 pg (25.0-35.0); Mean Corpuscular Volume 87 fL (80-100); Monocytes # (Auto) 0.9 Thou/mm3 (0.0-0.8); Monocytes % (Auto) 8 % (0-12); Neutrophils # (Auto) 6.9 Thou/mm3 (1.8-7.7); Neutrophils % (Auto) 68 % (37-80); Nucleated Red Blood Cell % 0 /100 WBC (0); Platelet Count 296 Thou/mm3 (140-440); RDW Standard Deviation 38.7 fL (35.1-43.9); Red Blood Count 5.79 Miln/mm3 (4.50-5.90); White Blood Count 10.1 Thou/mm3 (3.8-10.6)
[2024-03-13 17:41] LABS: Alanine Aminotransferase 91 U/L (10-49); Albumin, Serum 4.6 gm/dL (3.5-5.0); Albumin/Globulin Ratio 1.4 (1.2-2.2); Alkaline Phosphatase 92 U/L (46-116); Anion Gap 8 (7-16); Aspartate Amino Transferase 50 U/L (0-34); B-Type Natriuretic Peptide 105 pg/mL (0-100); BUN/Creatinine Ratio 16 Ratio (12-20); Bilirubin,Total 0.5 mg/dL (0.3-1.2); Blood Urea Nitrogen 18 mg/dL (9-23); Calcium 9.4 mg/dL (8.3-10.6); Calcium (Corrected) 9.4 mg/dL (8.5-10.1); Chloride 104 mMol/L (98-107); Creatinine (Component) 1.1 mg/dL (0.6-1.3); Estimated Creatinine Clearance 86.6 mL/min (>60); Globulin 3.2 gm/dL (2.3-3.5); Glucose 161 mg/dL (74-106); Osmolality,Calculated 282 (275-295); Potassium 3.8 mMol/L (3.4-5.1); Sodium 139 mMol/L (136-145); Total Protein 7.8 gm/dL (5.7-8.2); Troponin I < 0.020 ng/mL (0.0-0.045); eGFR > 60 See Note
--- NOTE | 2024-03-13 18:55 | PD.EDCHEST ---
ED Chest Pain RME/HPI General Chief Complaint: Chest Pain Stated Complaint: CHEST THIGHTNESS Arrival date/time: 03/13/24 15:23 RME / HPI RME / HPI narrative: 03/13/24 15:23 48-year-old male presents to emergency department complaints of chest pressure patient reports history of CHF ------ Dr. Posadas?s Main ED Evaluation: Related Data Previous Rx's ?Medication ?Instructions ?Recorded apixaban 5 mg (74 tabs) tablets in 5 mg PO BID #74 tabs 03/01/24 a dose pack (Zecter DVT-PE Treat 30D Start) atorvastatin 40 mg tablet 40 mg PO HS 30 days #30 tabs 03/01/24 furosemide 40 mg tablet 40 mg PO QDAY 30 days #30 tabs 03/01/24 metformin 500 mg tablet,extended 500 mg PO QDAY #30 tabs 03/01/24 release 24 hr metoprolol succinate 25 mg 25 mg PO QDAY #30 tabs 03/01/24 tablet,extended release 24 hr miscellaneous medical supply #1 ea 03/01/24 (Blood Pressure Cuff) sacubitril 24 mg-valsartan 26 mg 1 tab PO BID #30 tabs 03/01/24 tablet (Entresto) Allergies Allergy/AdvReac Type Severity Reaction Status Date / Time dapagliflozin Allergy Intermediate Flushing & Verified 02/28/24 15:11 fever & hives Review of Systems Review of Systems Systems Reviewed: All systems reviewed, normal except as documented Narrative Review of Systems: Gen: No fever, no chills, no weight loss EYES: No discharge, no visual changes, no pain HEENT: No ear pain, no congestion, no sore throat PULM: No shortness of breath, no cough, no congestion CV: No chest pain, no dyspnea on exertion, no palpitations GI: No nausea, no vomiting, no diarrhea, no pain, no constipation : No frequency, no urgency, no dysuria Musc/skel: No joint pain, no back pain Skin: No rash. Warm and dry. Psyc: No hallucinations, no depression Heme/Lymph: No easy bleeding or bruising tendencies Neuro: No weakness, no headache Past Medical History Past Medical History NEUROLOGIC: Positive Peripheral Neuropathy; Negative Neurological Disorders CARDIAC: Positive Cardiac Disorders and Hypertension; Negative Atrial Fibrillation or Congestive Heart Failure RESPIRATORY: Negative Chronic Obstructive Pulmonary Disease (COPD) or Asthma GASTROINTESTINAL: Negative Gastrointestinal Disorders or Hepatitis GENITOURINARY: Negative Genitourinary Disorders or Renal Disease REPRODUCTIVE: Negative Testicular Cancer MUSCULOSKELETAL: Negative Musculoskeletal Disorders ENDOCRINE: Positive Diabetes Mellitus Type 2 (NO LONGER TAKING MEDICATION FOR DM 2); Negative Endocrine Disorders or Diabetes Mellitus Type 1 HEMATOLOGIC: Negative Blood Disorders or Sickle Cell Disease OTHER HISTORY: Positive Chicken Pox; Negative Autoimmune Disease, Anesthesia Reactions, MRSA, VRSA, Vancomycin-Resistant Enterococci, Human Immunodeficiency Virus (HIV), Measles, Mumps, Rubella (Swed[place] Measles), Pertussis, Clostridium Difficile or Testicular Cancer Family History FAMILY HISTORY: Positive Family Cardiac Disorders (mother HTN); Negative Family Psychiatric Problems, Family Respiratory Disorders, Family Gastrointestinal Problems, Family Cancer, Family Surgery or Family Anesthesia Reaction Surgical History SURGICAL: Negative Endocrine Surgery, Thyroidectomy, Abdominal Surgery, Nephrectomy, Neurologic Surgery, Brain Shunt or Vasectomy Social History SMOKING STATUS: Former smoker SUBSTANCE USE: does not use ED Exam Narrative Physical exam: GENERAL APPEARANCE: alert and oriented x 4, well-developed, well-nourished, no acute distress VITALS: All vitals were reviewed and the pulse ox is 98% on room air, which is normal according to my interpretation. HEENT: Normocephalic, atraumatic; pupils equal, round, reactive to light; EOMI; mucous membranes pink, moist; oropharynx clear NECK: Supple LUNGS: CTABL; no wheezes, no rales, no rhonchi HEART: Regular rate, regular rhythm; normal S1, S2; no murmurs ABDOMEN: non distended; normal BS; soft, no tenderness, no guarding, no rebound; no masses, no organomegaly, no hernia BACK: no CVA tenderness EXTREMITIES: atraumatic; no edema NEUROLOGIC: awake; alert and oriented x4; cranial nerves II-XII grossly intact; no focal sensory or motor deficits PSYCHIATRIC: appropriate mood and affect SKIN: warm, dry, normal color; no rashes Course Course Course Narrative: CXR is ordered for determining the etiology of chest pain. Quality Measures none Orders Category Date Time Status EKG (ED ONLY) *Do not use* NOW Care 03/13/24 15:27 Completed EKG (ED Only) Stat Exams 03/13/24 15:27 Draft XR chest 2V Stat Exams 03/13/24 15:48 Completed BNP [B-Type Natriuretic Peptide] Stat Lab 03/13/24 16:01 Completed CBC Stat Lab 03/13/24 16:01 Completed Comprehensive Metabolic Panel Stat Lab 03/13/24 16:01 Completed Troponin I Stat Lab 03/13/24 16:01 Completed Vital Signs Vital signs: Vital Signs Temperature 98.8 F 03/13/24 15:39 Pulse Rate 74 03/13/24 15:39 Respiratory Rate 18 03/13/24 15:39 Blood Pressure 114/75 03/13/24 15:39 Pulse Oximetry (%) 98 03/13/24 15:39 Oxygen Delivery Method Room Air 03/13/24 15:39 Chest Pain MDM Narrative MDM Narrative:: Scribe Attestation: 03/13/24 Jessica Rodriguez am scribing for and in the presence of Dr. Posadas. Patient data External records reviewed:: [facility] previous records (Per chart review, patient was admitted here on 02/26/24 for acute respiratory distress with hypoxia.) Clinical information provided by:: patient Social determinants that could affect healthcare access:: none Patient has the following chronic illnesses:: HTN, DM How is presenting disease/condition affected by chronic disease/condition?: uneffected by Evaluation data The following diagnostics were reviewed and interpreted by me:: lab results, radiology exam(s) and EKG tracing(s) Lab and/or radiology exams considered but not ordered:: none Interpretation Summary: CBC is normal, CMP is normal, troponin is normal, BNP is 105, Medications / Prescriptions Medications or Prescriptions considered but not ordered:: none Discharge Plan Prescriptions/Referrals Prescriptions/Med Rec: No Action metformin 500 mg tablet extended release 24 hr 500 mg PO QDAY Qty: 30 0RF atorvastatin 40 mg tablet 40 mg PO HS 30 Days Qty: 30 0RF furosemide 40 mg Tablet 40 mg PO QDAY 30 Days Qty: 30 0RF Eliquis DVT-PE Treat 30D Start 5 mg (74 tabs) tablets,dose pack 5 mg PO BID Qty: 74 0RF (DME) Blood Pressure Cuff Misc See Rx Instructions .Route Qty: 1 0RF Rx Instructions: As directed sacubitril-valsartan [Entresto] 24-26 mg tablet 1 tab PO BID Qty: 30 0RF metoprolol succinate 25 mg tablet extended release 24 hr 25 mg PO QDAY Qty: 30 0RF Referrals: Amaury Stratton NP [Primary Care Provider] - In 1 week Patient/Caregiver Discharge Instructions Print Language: [place]
[2024-03-13 18:56] VITALS: BP 118/88; PULSE 73; RESP 17; O2SAT 97
--- NOTE | 2024-03-13 19:06 | PD.EDADULT ---
ED General RME/HPI General Chief complaint: Chest Pain Stated complaint: CHEST THIGHTNESS Time Seen by Provider: 03/13/24 18:59 Arrival date/time: 03/13/24 15:23 CC: Chest pain HPI ongoing him from approximately 10 AM, low center anterior more pressure than pain, recent discharge from here for congestive heart failure with unknown cause. The patient was concerned there may be door damage to his heart. Patient states he continues to take all of his medication including Lasix. Patient denies fever chills shortness of breath difficulty breathing at the time of the exam the patient chest pain had resolved the patient is not in any acute distress. Related Data Previous Rx's ?Medication ?Instructions ?Recorded apixaban 5 mg (74 tabs) tablets in 5 mg PO BID #74 tabs 03/01/24 a dose pack ([employer] DVT-PE Treat 30D Start) atorvastatin 40 mg tablet 40 mg PO HS 30 days #30 tabs 03/01/24 furosemide 40 mg tablet 40 mg PO QDAY 30 days #30 tabs 03/01/24 metformin 500 mg tablet,extended 500 mg PO QDAY #30 tabs 03/01/24 release 24 hr metoprolol succinate 25 mg 25 mg PO QDAY #30 tabs 03/01/24 tablet,extended release 24 hr miscellaneous medical supply #1 ea 03/01/24 (Blood Pressure Cuff) sacubitril 24 mg-valsartan 26 mg 1 tab PO BID #30 tabs 03/01/24 tablet (Entresto) Allergies Allergy/AdvReac Type Severity Reaction Status Date / Time dapagliflozin Allergy Intermediate Flushing & Verified 02/28/24 15:11 fever & hives Review of Systems Review of Systems Narrative Review of Systems: GEN: No fever, no chills, no weight loss EYES: No discharge, no visual changes, no pain HEENT: No ear pain, no congestion, no sore throat PULM: No shortness of breath, no cough, no congestion CV: + chest pain, no dyspnea on exertion, no palpitations GI: No nausea, no vomiting, no diarrhea, no pain, no constipation : No frequency, no urgency, no dysuria MUSC/SKEL: No joint pain, no back pain SKIN: No rash PSYCH: No hallucinations, no depression HEME/LYMPH: No easy bleeding or bruising tendencies NEURO: No weakness, no headache Past Medical History Past Medical History NEUROLOGIC: Positive Peripheral Neuropathy; Negative Neurological Disorders CARDIAC: Positive Cardiac Disorders and Hypertension; Negative Atrial Fibrillation or Congestive Heart Failure RESPIRATORY: Negative Chronic Obstructive Pulmonary Disease (COPD) or Asthma GASTROINTESTINAL: Negative Gastrointestinal Disorders or Hepatitis GENITOURINARY: Negative Genitourinary Disorders or Renal Disease REPRODUCTIVE: Negative Testicular Cancer MUSCULOSKELETAL: Negative Musculoskeletal Disorders ENDOCRINE: Positive Diabetes Mellitus Type 2 (NO LONGER TAKING MEDICATION FOR DM 2); Negative Endocrine Disorders or Diabetes Mellitus Type 1 HEMATOLOGIC: Negative Blood Disorders or Sickle Cell Disease OTHER HISTORY: Positive Chicken Pox; Negative Autoimmune Disease, Anesthesia Reactions, MRSA, VRSA, Vancomycin-Resistant Enterococci, Human Immunodeficiency Virus (HIV), Measles, Mumps, Rubella ([place] Measles), Pertussis, Clostridium Difficile or Testicular Cancer Family History FAMILY HISTORY: Positive Family Cardiac Disorders (mother HTN); Negative Family Psychiatric Problems, Family Respiratory Disorders, Family Gastrointestinal Problems, Family Cancer, Family Surgery or Family Anesthesia Reaction Surgical History SURGICAL: Negative Endocrine Surgery, Thyroidectomy, Abdominal Surgery, Nephrectomy, Neurologic Surgery, Brain Shunt or Vasectomy Social History SMOKING STATUS: Never smoker SUBSTANCE USE: does not use ED Exam Narrative Physical exam: [General: Not in any acute distress Head normocephalic HEENT: Within acceptable limits Neck is supple nontender Chest equal chest rise nontender to palpation Respiratory: Clear to auscultation no wheezes crackles or rubs CV: Rate rhythm is regular no murmurs rubs or clicks Abdomen is soft, flat, no masses positive bowel sounds all 4 quadrants Back: No CVA tenderness no spinous process tenderness from cervical spine thoracic and lumbar spine Skin: Intact no petechiae rash induration ulceration or crepitus Extremities: Moving all extremity against resistance cap refill less than 2 seconds neurosensory intact. No lower extremity edema. Neuro: Awake alert oriented x3 Glascow coma 15 no focal deficits] Course Quality Measures VTE prophylaxis Orders Category Date Time Status EKG (ED ONLY) *Do not use* NOW Care 03/13/24 15:27 Completed EKG (ED Only) Stat Exams 03/13/24 15:27 Draft XR chest 2V Stat Exams 03/13/24 15:48 Completed BNP [B-Type Natriuretic Peptide] Stat Lab 03/13/24 16:01 Completed CBC Stat Lab 03/13/24 16:01 Completed Comprehensive Metabolic Panel Stat Lab 03/13/24 16:01 Completed Troponin I Stat Lab 03/13/24 16:01 Completed Vital Signs Vital signs: Vital Signs Temperature 98.8 F 03/13/24 15:39 Pulse Rate 74 03/13/24 15:39 Respiratory Rate 18 03/13/24 15:39 Blood Pressure 114/75 03/13/24 15:39 Pulse Oximetry (%) 98 03/13/24 15:39 Oxygen Delivery Method Room Air 03/13/24 15:39 MDM Patient data External records reviewed:: [facility] previous records Clinical information provided by:: patient Social determinants that could affect healthcare access:: none Patient has the following chronic illnesses:: CHF How is presenting disease/condition affected by chronic disease/condition?: uneffected by Evaluation data The following diagnostics were reviewed and interpreted by me:: lab results, radiology exam(s) and EKG tracing(s) Lab and/or radiology exams considered but not ordered:: EKG performed at 1543 shows a ventricular of 72 MN interval 181 QRS of 106 QTc of 429 this is sinus rhythm. CMP shows no acute electrolyte imbalances renal impairment transaminitis or T. bili elevation CBC shows no acute leukocytosis anemia thrombocytopenia. Troponin is negative BNP is 121. Interpretation Summary: Chest pain low index of suspicion that this is significant in nature. Patient will be discharged home to follow-up with a primary care and continue on all his medications. Medications Medications considered but not ordered:: None Medication administrations:: None Consultations Consultation(s) initiated? (list below): No Diagnosis Differential Diagnosis ED Complaint MDM: [facility] [place] pneumonia Most likely diagnosis given after review of the tests above:: Chest pain Admission Indicated Admission indicated?: not indicated Explain why admission is indicated or not indicated:: Patient Admission Request Was there a request for admission?: No Disposition Plan Disposition Plan: Discharge Discharge Attestation Discharge Attestation: The patient and all family members were given an opportunity to ask questions and understood the discharge instructions. Discharge instructions specifically effects, indications for sooner follow up or return to the emergency department, and the expected course of current diagnosis. Patient condition: Stable Medical Decision Making Differential Diagnosis Differential Diagnosis: [facility] [place] pneumonia Lab Data 03/13/24 16:01 03/13/24 16:01 Labs: Lab Results 03/13/24 Range/Units 16:01 WBC 10.1 (3.8-10.6) Thou/mm3 RBC 5.79 (4.50-5.90) Miln/mm3 Hgb 17.5 H (13.5-16.0) g/dL Hct 50.6 (41.0-53.0) % MCV 87 (80-100) fL MCH 30.2 (25.0-35.0) pg MCHC 34.6 (31.0-37.0) g/dl RDW Std Deviation 38.7 (35.1-43.9) fL Plt Count 296 D (140-440) Thou/mm3 Neut % (Auto) 68 (37-80) % Lymph % (Auto) 22 (10-50) % [place] % (Auto) 8 (0-12) % Eos % (Auto) 1 (0-10) % Baso % (Auto) 0 (0-2.5) % Neut # (Auto) 6.9 (1.8-7.7) Thou/mm3 Lymph # (Auto) 2.2 (1.0-4.8) Thou/mm3 [place] # (Auto) 0.9 H (0.0-0.8) Thou/mm3 Eos # (Auto) 0.1 (0.0-0.5) Thou/mm3 Baso # (Auto) 0.0 (0.0-0.2) Thou/mm3 Immature Gran # (Auto) 0.08 H (0.00-0.00) Thou/mm3 Absolute Nucleated RBC 0.00 (0.00-0.00) Thou/mm3 Immature Gran % 1 H (0-0) % Nucleated RBC % 0 (0) /100 WBC Sodium 139 (136-145) mMol/L Potassium 3.8 (3.4-5.1) mMol/L Chloride 104 (98-107) mMol/L Carbon Dioxide 27.0 (20.0-31.0) mMol/L Anion Gap 8 (7-16) BUN 18 (9-23) mg/dL Creatinine 1.1 (0.6-1.3) mg/dL Estim Creat Clear Calc 86.6 (>60) mL/min eGFR > 60 (60 - ) See Note BUN/Creatinine Ratio 16 (12-20) Ratio Glucose 161 H (74-106) mg/dL Calculated Osmolality 282 (275-295) Calcium 9.4 (8.3-10.6) mg/dL Corrected Calcium 9.4 (8.5-10.1) mg/dL Total Bilirubin 0.5 (0.3-1.2) mg/dL AST 50 H (0-34) U/L ALT 91 H (10-49) U/L Alkaline Phosphatase 92 (46-116) U/L Troponin I < 0.020 (0.0-0.045) ng/mL B-Natriuretic Peptide 105 H (0-100) pg/mL Total Protein 7.8 (5.7-8.2) gm/dL Albumin 4.6 (3.5-5.0) gm/dL Globulin 3.2 (2.3-3.5) gm/dL Albumin/Globulin Ratio 1.4 (1.2-2.2) Discharge Plan Plan Patient Disposition: HOME (Self Care) Patient condition on transfer: Stable Prescriptions/Referrals Prescriptions/Med Rec: No Action metformin 500 mg tablet extended release 24 hr 500 mg PO QDAY Qty: 30 0RF atorvastatin 40 mg tablet 40 mg PO HS 30 Days Qty: 30 0RF furosemide 40 mg Tablet 40 mg PO QDAY 30 Days Qty: 30 0RF Eliquis DVT-PE Treat 30D Start 5 mg (74 tabs) tablets,dose pack 5 mg PO BID Qty: 74 0RF (DME) Blood Pressure Cuff Misc See Rx Instructions .Route Qty: 1 0RF Rx Instructions: As directed sacubitril-valsartan [Entresto] 24-26 mg tablet 1 tab PO BID Qty: 30 0RF metoprolol succinate 25 mg tablet extended release 24 hr 25 mg PO QDAY Qty: 30 0RF Referrals: Amaury Stratton NP [Primary Care Provider] - In 1 week Problem List Clinical Impression: Chest pain Patient/Caregiver Discharge Instructions Education Materials: ED Chest Pain, Uncertain Cause Print Language: Romansh Stand Alone Forms: Erica Award Info., Patient Portal Info Letter, Work/School Release PA/RECYCLING OPERATOR Supervising Physician PA/CLIFTON Supervising Physician: Song Menon ENP
== END 2024-03-13 19:19 | disposition home or self-care (01) ==
PROVIDERS: Nurse Practitioner Primary Care; Emergency Provider Emergency Medicine; PCP Nurse Practitioner Family
DX: R07.89 Other chest pain (principal); I50.9 Heart failure, unspecified
CPT/HCPCS: 36415; 71046; 80053; 83880; 84484; 85025; 93005; 99283